=== PATIENT | male | born 1980 | race Caucasian/White ===

== ENCOUNTER → 2018-02-02 15:28 | Outpatient (CLI) | payer OTHER, SELFPAY ==
[2018-02-02 16:20] LABS: Ferritin 78 ng/mL (26-388)
[2018-02-02 17:25] LABS: Absolute Lymphocyte Count 2.07 X10^3/ul (0.83-4.51); Absolute Neutrophil Count 4.4 X10^3/uL (2.0-7.7); Basophil# 0.03 X10^3/uL; Basophil% 0.4 % (0-1); Eosinophil# 0.18 X10^3/uL; Eosinophils% 2.5 % (0-5); Hematocrit 45.9 % (40-54); Hemoglobin 16.7 g/dl (13.0-16.5); Lymphocyte # 2.07 X10^3/ul (4.0); Lymphocyte % 28.7 % (19-41); Mean Corp Hgb Conc 36.4 g/gl (32-36); Mean Corpuscular Hgb 34.1 pg (27.0-32.0); Mean Corpuscular Volume 93.7 fL (80-94); Mean Platelet Vol. 12.2 fl (6.2-12.0); Monocyte# 0.53 X10^3/uL; Monocyte% 7.3 % (0-10); POSITIVE COUNT NO; POSITIVE DIFFERENTIAL NO; POSITIVE MORPHOLOGY NO; Platelet Count 201 K/mm3 (150-450); RBC Distribution Width CV 11.9 % (11.6-14.6); RBC Distribution Width SD 40.7 fl (35.1-43.9); White Blood Count 7.2 K/mm3 (4.4-11.0)
== END ==
PROVIDERS: Family Provider Family Medicine; PCP Family Medicine; Visit Provider Internal Medicine Medical Oncology
DX: E83.119 Hemochromatosis, unspecified (principal)
CPT/HCPCS: 36415; 82728; 85025

== ENCOUNTER → 2018-05-15 14:15 | Outpatient (CLI) | payer OTHER, SELFPAY ==
--- NOTE | 2018-05-15 14:19 | ECHOCS_ITS ---
Reason For Study: Hemachromatosis Procedure This was a 2D Doppler, Color Flow transthoracic echocardiogram. The exam was of poor technical quality due to body habitus. The study was technically difficult. Contrast injection was performed. Exam performed in department. Left Ventricle Normal LV size. Left ventricular systolic function is normal. The estimated ejection fraction is 55 %. Transmitral doppler flow suggestive of impaired relaxation of left ventricle. No regional wall motion abnormalities noted. Right Ventricle Normal RV size. Normal systolic function. Atria Normal left atrium. Normal right atrium. No doppler evidence for ASD. Mitral Valve There is no mitral annular calcification. Normal mitral valve. Tricuspid Valve Normal tricuspid valve. Trivial tricuspid valve insufficiency. Unable to estimate RV systolic pressure/pulmonary artery pressure due to technically difficult study. Aortic Valve Trisinus/trileaflet aortic valve. Normal aortic valve. Pulmonic Valve The pulmonic valve is not well visualized. Trivial pulmonic valve insufficiency. Great Vessels Normal sized aortic root. Pericardium/Pleural No pericardial effusion. Medication 22 gauge I.V. with prn adaptor inserted into right arm. Diluted definity 2ml given slow IV push to enhance endocardial definition. MMode/2D Measurements & Calculations LVIDd: 4.7 cm IVSd: 1.3 cm Ao root diam: 3.5 cm LVIDs: 3.2 cm LVPWd: 1.1 cm FS: 31.2 % LAV(MOD-bp): 38.4 ml LA A4 area: 16.1 cm2 RA A4 area: 13.8 cm2 LAV(MOD-bp) Indexed: 16.7 ml/m2 LAV(MOD-sp2): 34.3 ml LAV(MOD-sp4): 42.2 ml Time Measurements MV dec time: 0.23 sec Doppler Measurements & Calculations MV E max praneeth: 68.7 cm/sec Lat Peak E' Praneeth: 11.4 cm/sec Med Peak E' Praneeth: 11.5 cm/sec MV A max praneeth: 74.7 cm/sec E/E' lat: 6.0 E/E' med: 6.0 MV E/A: 0.92 MV V2 max: 84.6 cm/sec MV P1/2t max praneeth: 84.6 cm/sec Ao V2 max: 110.1 cm/sec MV max P.9 mmHg MV P1/2t: 82.1 msec Ao max P.8 mmHg MV V2 mean: 53.5 cm/sec MV dec slope: 301.7 cm/sec2 Ao V2 mean: 73.7 cm/sec MV mean P.3 mmHg MVA(P1/2t): 2.7 cm2 Ao mean P.4 mmHg MV V2 VTI: 25.8 cm Ao V2 VTI: 18.2 cm LV V1 max: 101.0 cm/sec PA V2 max: 97.3 cm/sec LV V1 max P.1 mmHg LV V1 mean P.1 mmHg LV V1 mean: 68.5 cm/sec LV V1 VTI: 19.3 cm Interpretation Summary The study was technically difficult. Contrast injection was performed. Left ventricular systolic function is normal. The estimated ejection fraction is 55 %. Trivial tricuspid valve insufficiency. Trivial pulmonic valve insufficiency. Unable to estimate RV systolic pressure/pulmonary artery pressure due to technically difficult study. Transmitral doppler flow suggestive of impaired relaxation of left ventricle Ordering Physician: Juan Daniel Branch Referring Physician: Juan Daniel Branch Performed By: Patrick Carias RCS
[2018-05-15 15:48] LABS: Absolute Lymphocyte Count 2.44 X10^3/ul (0.83-4.51); Absolute Neutrophil Count 3.4 X10^3/uL (2.0-7.7); Basophil# 0.01 X10^3/uL; Basophil% 0.2 % (0-1); Eosinophil# 0.22 X10^3/uL; Eosinophils% 3.4 % (0-5); Hematocrit 44.7 % (40-54); Hemoglobin 15.8 g/dl (13.0-16.5); Lymphocyte # 2.44 X10^3/ul (4.0); Lymphocyte % 37.7 % (19-41); Mean Corp Hgb Conc 35.3 g/gl (32-36); Mean Corpuscular Hgb 33.1 pg (27.0-32.0); Mean Corpuscular Volume 93.7 fL (80-94); Mean Platelet Vol. 11.7 fl (6.2-12.0); Monocyte# 0.37 X10^3/uL; Monocyte% 5.7 % (0-10); Neutrophil # 3.43 X10^3/uL (2.7-7.7); Neutrophil % 52.8 % (47-70); Platelet Count 199 K/mm3 (150-450); RBC Distribution Width CV 12.2 % (11.6-14.6); RBC Distribution Width SD 40.9 fl (35.1-43.9); Red Blood Count 4.77 M/mm3 (4.6-6.2); White Blood Count 6.5 K/mm3 (4.4-11.0)
[2018-05-15 15:57] LABS: POSITIVE COUNT NO; POSITIVE DIFFERENTIAL NO; POSITIVE MORPHOLOGY NO
[2018-05-15 16:22] LABS: Ferritin 51 ng/mL (26-388); Thyroid Stim Hormone (TSH) 1.97 uIU/mL (0.358-3.74)
== END ==
PROVIDERS: Family Provider Family Medicine; PCP Family Medicine; Visit Provider Internal Medicine Medical Oncology
DX: E83.119 Hemochromatosis, unspecified (principal)
CPT/HCPCS: 36415; 82728; 84443; 85025; 93306; Q9957; A4216; C8929

== ENCOUNTER → 2018-08-14 16:21 | Outpatient (CLI) | payer OTHER, SELFPAY ==
[2018-08-14 16:59] LABS: Absolute Lymphocyte Count 2.97 X10^3/ul (0.83-4.51); Absolute Neutrophil Count 3.5 X10^3/uL (2.0-7.7); Basophil# 0.02 X10^3/uL; Basophil% 0.3 % (0-1); Eosinophil# 0.22 X10^3/uL; Eosinophils% 3.1 % (0-5); Hematocrit 44.8 % (40-54); Hemoglobin 15.9 g/dl (13.0-16.5); Lymphocyte # 2.97 X10^3/ul (4.0); Lymphocyte % 41.8 % (19-41); Mean Corp Hgb Conc 35.5 g/gl (32-36); Mean Corpuscular Hgb 33.4 pg (27.0-32.0); Mean Corpuscular Volume 94.1 fL (80-94); Mean Platelet Vol. 11.7 fl (6.2-12.0); Monocyte# 0.41 X10^3/uL; Monocyte% 5.8 % (0-10); Neutrophil # 3.49 X10^3/uL (2.7-7.7); Platelet Count 197 K/mm3 (150-450); RBC Distribution Width CV 12.2 % (11.6-14.6); RBC Distribution Width SD 41.7 fl (35.1-43.9); Red Blood Count 4.76 M/mm3 (4.6-6.2); White Blood Count 7.1 K/mm3 (4.4-11.0)
[2018-08-14 17:06] LABS: POSITIVE COUNT NO; POSITIVE DIFFERENTIAL NO; POSITIVE MORPHOLOGY NO
[2018-08-14 17:30] LABS: ALB/GLOB Ratio 1.2 RATIO (0.9-2.4); AST(SGOT) 22 U/L (15-37); Alanine Aminotransfer ALT/SGPT 55 U/L (16-61); Albumin, Serum 4.1 g/dL (3.2-5.0); Alkaline Phosphatase 50 U/L (45-117); Anion Gap 6 (5-15); BUN 19 mg/dL (7-18); BUN/Creat Ratio 22.4 RATIO (10-20); Chloride 104 mmol/L (98-107); Creatinine, Serum 0.85 mg/dL (0.70-1.30); EST Glomerular Filtration Rate 107 mL/min (>60); Est Glom Filt Rate - Afr Amer 129 mL/min (>60); Ferritin 114 ng/mL (26-388); Globulin 3.3 g/dL (2.2-4.2); Glucose 86 mg/dL (74-106); Potassium 3.9 mmol/L (3.5-5.1); Protein, Total 7.4 g/dL (6.4-8.2); Sodium Level 137 mmol/L (136-145)
== END ==
PROVIDERS: Family Provider Family Medicine; PCP Family Medicine; Referring Provider Internal Medicine Medical Oncology; Visit Provider Internal Medicine Medical Oncology
DX: E83.119 Hemochromatosis, unspecified (principal)
CPT/HCPCS: 36415; 80053; 82728; 85025

== ENCOUNTER → 2018-10-08 07:34 | Outpatient (CLI) | payer OTHER, SELFPAY ==
--- NOTE | 2018-10-08 07:49 | US_ITS ---
STUDY: ABDOMINAL ULTRASOUND REASON FOR EXAM: Male, 37 years old. Hemochromatosis TECHNIQUE: Transabdominal ultrasound was performed with real-time and static belcher scale imaging. TECHNICAL QUALITY: Adequate. COMPARISON: None. FINDINGS: Liver: The liver measures 17.8 cm. There is normal echogenicity of the liver. The bile ducts are within normal limits. There is hepatic color flow. The direction of portal flow is hepatopetal. There is no demonstrated mass lesion. Portal vein measurement: Gallbladder: Normal distended gallbladder. The gallbladder wall measures 2.6 mm. There is a negative sonographic Varela's sign. There is no pericholecystic fluid. There are no gallstones. Possible multiple gallbladder polyps. Common Bile Duct (C.B.D.): The common bile duct measures 3.4 mm. Pancreas: Normal size of the head, body and tail of the pancreas. There is normal echogenicity of the pancreas. There is no demonstrated pancreatic mass or cyst. Spleen: Normal size of the spleen. The spleen measures 10.4 cm. Accessory splenic nodule measuring 2.7 cm. Right Kidney: Normal size of the right kidney. The right kidney measures 11.2 x 6.1 x 5.4 cm. Normal renal cortex. The right cortex measures 1.7 cm. There is no demonstrated renal mass or cyst. There is no right hydronephrosis. Left Kidney: Normal size of the left kidney. The left kidney measures 12.3 x 6.0 x 5.5 cm. Normal renal cortex. The left cortex measures 2.2 cm. There is no demonstrated renal mass or cyst. There is no left hydronephrosis. Aorta: The visualized portion is normal. I.V.C.: The IVC is patent. There is no ascites. US/Abdomen Complete IMPRESSION: Several gallbladder polyps are noted. Hepatomegaly with fatty changes. Electronically Signed: Wale Basilio DO at 22:25 EST Tel [phone], Service support ,
[2018-10-08 08:03] LABS: Absolute Lymphocyte Count 2.27 X10^3/ul (0.83-4.51); Absolute Neutrophil Count 3.4 X10^3/uL (2.0-7.7); Basophil# 0.02 X10^3/uL; Basophil% 0.3 % (0-1); Eosinophil# 0.16 X10^3/uL; Eosinophils% 2.5 % (0-5); Hematocrit 46.4 % (40-54); Hemoglobin 16.7 g/dl (13.0-16.5); Lymphocyte # 2.27 X10^3/ul (4.0); Lymphocyte % 35.7 % (19-41); Mean Corpuscular Hgb 33.9 pg (27.0-32.0); Mean Corpuscular Volume 94.3 fL (80-94); Mean Platelet Vol. 11.6 fl (6.2-12.0); Monocyte# 0.49 X10^3/uL; Monocyte% 7.7 % (0-10); Neutrophil % 53.6 % (47-70); Platelet Count 194 K/mm3 (150-450); RBC Distribution Width CV 12.2 % (11.6-14.6); RBC Distribution Width SD 41.6 fl (35.1-43.9); Red Blood Count 4.92 M/mm3 (4.6-6.2); White Blood Count 6.4 K/mm3 (4.4-11.0)
[2018-10-08 08:22] LABS: POSITIVE COUNT NO; POSITIVE DIFFERENTIAL NO; POSITIVE MORPHOLOGY NO
[2018-10-08 08:32] LABS: ALB/GLOB Ratio 1.2 RATIO (0.9-2.4); AST(SGOT) 24 U/L (15-37); Alanine Aminotransfer ALT/SGPT 50 U/L (16-61); Albumin, Serum 3.9 g/dL (3.2-5.0); Alkaline Phosphatase 50 U/L (45-117); Anion Gap 8 (5-15); BUN 20 mg/dL (7-18); BUN/Creat Ratio 22.9 RATIO (10-20); Calcium,Total 8.7 mg/dL (8.5-10.1); Chloride 105 mmol/L (98-107); Creatinine, Serum 0.87 mg/dL (0.70-1.30); EST Glomerular Filtration Rate 104 mL/min (>60); Est Glom Filt Rate - Afr Amer 125 mL/min (>60); Ferritin 86 ng/mL (26-388); Globulin 3.3 g/dL (2.2-4.2); Glucose 102 mg/dL (74-106); Potassium 4.1 mmol/L (3.5-5.1); Protein, Total 7.2 g/dL (6.4-8.2); Sodium Level 141 mmol/L (136-145)
--- OUTSIDE RECORDS SUMMARY | 2018-12-01 07:15 | XMS RPT_ITS ---
:1980 Author Organization OHIP Support Name Relationship Address Phone MATTHEW TAPIA/BETH Unavailable [address] + [place] [address] + [place] [address] MATTHEW TAPIA/BETH Unavailable [address] + [place] [address] + [place] [address] MATTHEW TAPIA/BETH Unavailable [address] + [place] [address] + [place] [address] MATTHEW TAPIA/BETH Unavailable [address] + [place] [address] + [place] [address] MATTHEW TAPIA/BETH Unavailable [address] + [place] [address] + [place] [address] MATTHEW TAPIA/BETH Unavailable [address] + [place] [address] + [place] [address] MATTHEW TAPIA/BETH Unavailable [address] + [place] [address] + [place] [address] MATTHEW TAPIA/BETH Unavailable [address] + [place] [address] + [place] [address] TAPIA, MATTHEW/BETH Unavailable [address] + [place] [address] + [place] [address] TAPIA, MATTHEW/BETH Unavailable [address] + [place] [address] + [place] [address] TAPIA, MATTHEW/BETH Unavailable [address] + [place] [address] + [place] [address] TAPIA, MATTHEW/BETH Unavailable [address] + [place] [address] + [place] [address] Care Team Providers Name Role Phone Juan Daniel Branch Attending Unavailable Tapia, J. Valentín Referring Unavailable Tapia, J. Valentín Primary Care Unavailable Juan Daniel Branch Consulting Unavailable Juan Daniel Branch Attending Unavailable Tapia, J. Valentín Primary Care Unavailable Tapia, J. Valentín Referring Unavailable BassamKassi dominguez Attending Unavailable Tapia, J. Valentín Primary Care Unavailable Juan Daniel Branch Attending Unavailable Juan Daniel Branch Attending Unavailable Juan Daniel Branch Referring Unavailable Tapia, J. Valentín Primary Care Unavailable Juan Daniel Branch Attending Unavailable Tapia, J. Valentín Referring Unavailable Tapia, J. Valentín Primary Care Unavailable Juan Daniel Branch Consulting Unavailable Juan Daniel Branch Attending Unavailable Juan Daniel Branch Referring Unavailable Tapia, J. Valentín Primary Care Unavailable Juan Daniel Branch Attending Unavailable Tapia, J. Valentín Referring Unavailable Tapia, J. Valentín Primary Care Unavailable Juan Daniel Branch Consulting Unavailable Mikey Ardon Attending Unavailable Juan Daniel Branch Attending Unavailable Juan Daniel Branch Referring Unavailable Tapia, J. Valentín Primary Care Unavailable Bassam, Kassi Attending Unavailable Tapia, J. Valentín Referring Unavailable Tapia, J. Valentín Primary Care Unavailable Juan Daniel Branch Consulting Unavailable Bassam, Kassi Attending Unavailable Bassam, Kassi Referring Unavailable Cameron Tapia Primary Care Unavailable PROBLEMS PROBLEMS DATE TYPE CONDITION / CODE ATTENDING STATUS SOURCE 10/12/2018 Unknown E83.110 - Hereditary Juan Daniel Branch Active [facility] hemochromatosis / Community E83.110(ICD-10) Hospital Repository 10/12/2018 Unknown E83.119 - Juan Daniel Branch Active [facility] Hemochromatosis, Community unspecified / Hospital E83.119(ICD-10) Repository PROCEDURES PROCEDURES No Procedure Records FoundRESULTS RESULTS ONCOLOGY VISIT REPORT Observed: 10/15/2018 Status: F Source: [place] 3:45 PM [facility] HOSPITAL REPOSITORY [facility] [address] [facility] [place] [address] OFFICE VISIT Date of Service: 10/15/18 1540 MR#: [id number] Acct: [id number] Name: CHARLES TAPIA Rep #: [id number] : 1980 From: Juan Daniel Branch MD Age/Sex: 37/M Location: ONC Status: Signed Subjective - Date of Service Date of Service:: 10/15/18 - Chief Complaint F/u for Hemochromatosis - History of Present Illness Mr. 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 He had liver biopsy on 11/14/2012 which showed 4+ iron with portal, periportal and bridging fibrosis with no cirrhosis. He has had phlebotomy intermittently since then. Comes for follow up. Feels well. - Past Medical/Social History Past Medical History Past Medical History: Hereditary hemochromatosis,Hypertension Cancer: Skin cancer Past Surgical History Surgical: Splenectomy,Tonsillectomy Other Surgical History: WIDE EXCISION OF MELANOMA Family History Paternal Past Medical History: Unknown Maternal Past Medical History: Hypertension Social History Social History: No changes Smoking Status Light Smoker (<10/day) Review of Systems Constitutional:: Denies: Fever, Sweats, Weight loss, Appetite change, Chills Cardiovascular:: Denies: Chest pain, Palpitations, Dyspnea on exertion, Orthopnea, PND, Shortness of breath Respiratory: Denies: Cough, Hemoptysis, Shortness of Breath, Wheezing Gastrointestinal:: Denies: Abdominal pain, Nausea, Vomiting, Diarrhea, Constipation, Hematochezia Genitourinary: Denies: Dysuria, Hematuria, 15, Flank pain Musculoskeletal:: Denies: Back pain, Myalgia, Arthralgia Skin: Denies: Rash, Skin Changes, Wounds Neurological:: Denies: Headache, Dizziness, Visual changes, Tinnitus, Hearing loss Psychiatric: Denies: Anxiety, Depression, Homicidal Ideations, Suicidal Ideations Vital Signs Height 6 ft Weight: 112.219 kg Weight in Pounds 247.4 lbs Pulse Ox 98 - Physical Exam General: Alert, Oriented x3, No apparent distress HEENT: Atraumatic, PERRLA, EOMI, Normocephalic Oropharynx:: Dry mucosa Neck:: Supple, Trachea midline. Negative for: JVD, bilateral Cardiac:: Regular rate, Regular rhythm, Normal S1, Normal S2. Negative for: Murmur Lungs: Clear to auscultation, Excusion symmetrical. Negative for: Rhonchi, Wheezes Abdomen:: Bowel sounds x 4, Soft, Non-tender, Non-distended. Negative for: Hepatosplenomegaly Extremities:: Negative for: Cyanosis, Edema Neurological: Neuro grossly intact Skin:: Negative for: Lesions, Rash, Petechiae, Ecchymosis Psychiatric:: Appropriate affect, Euthymic Lymphatics:: Negative for: Cervical lymphadenopathy, Supraclavicular lymphadenopathy, Axillary lymphadenopathy Laboratory Data: Laboratory Tests WBC 6.4 Hgb 16.7 H Hct 46.4 Plt Count 194 Ferritin 86 Total Bilirubin AST ALT Alkaline Phosphatase Diagnostic Data: 10/08/2018 US abd reviewed. US/Abdomen Complete IMPRESSION: Several gallbladder polyps are noted. Hepatomegaly with fatty changes. Electronically Signed: Wale Basilio DO at 22:25 EST Assessment and Plan Homozygous Hemochromatosis, Ferritin is 86. Clinically stable. Normal Ejection Fraction. Plan is to proceed with Phlebotomy 500cc followed by NS 500cc today. RTC 3 months with cbc, cmp,iron, ferritin. Medications: Prescriptions This Visit Medication Instructions Recorded Lisinopril [Zestril] 40 mg PO DAILY 05/08/17 Multivitamin [Multiple Vitamins] 1 each PO DAILY 07/03/17 Primary Care Provider: Cameron Tapia MD Referring Provider: - Problem List (1) Hemochromatosis Status: Chronic Qualifiers: Hemochromatosis type: hereditary Qualified Code(s): E83.110 - Hereditary hemochromatosis Code Visit Office Visits / Consults: 47714 OV L3 Est 10/15/18 1545 <Electronically signed by Juan Daniel Branch MD> Date Juan Daniel Branch MD Cosigner Signature: Date (if applicable) CC: ABDOMEN COMPLETE Observed: 10/08/2018 Status: F Source: [place] 7:49 AM [facility] REPOSITORY [facility] Imaging Services [address] [place] [address] Abdomen Complete MR#: [id number] Acct: [id number] Name: CHARLES TAPIA Rep #: [id number] : 1980 M 37 From: Wale Basilio DO PCP: Cameron Tapia MD Status: REG CLI Study: Abdomen Complete Date of Exam: 10/08/18 Exam# [id number] Ordering Dr: Kassi Banegas STUDY: ABDOMINAL ULTRASOUND REASON FOR EXAM: Male, 37 years old. Hemochromatosis TECHNIQUE: Transabdominal ultrasound was performed with real-time and static belcher scale imaging. TECHNICAL QUALITY: Adequate. COMPARISON: None. FINDINGS: Liver: The liver measures 17.8 cm. There is normal echogenicity of the liver. The bile ducts are within normal limits. There is hepatic color flow. The direction of portal flow is hepatopetal. There is no demonstrated mass lesion. Portal vein measurement: Gallbladder: Normal distended gallbladder. The gallbladder wall measures 2.6 mm. There is a negative sonographic Varela's sign. There is no pericholecystic fluid. There are no gallstones. Possible multiple gallbladder polyps. Common Bile Duct (C.B.D.): The common bile duct measures 3.4 mm. Pancreas: Normal size of the head, body and tail of the pancreas. There is normal echogenicity of the pancreas. There is no demonstrated pancreatic mass or cyst. Spleen: Normal size of the spleen. The spleen measures 10.4 cm. Accessory splenic nodule measuring 2.7 cm. Right Kidney: Normal size of the right kidney. The right kidney measures 11.2 x 6.1 x 5.4 cm. Normal renal cortex. The right cortex measures 1.7 cm. There is no demonstrated renal mass or cyst. There is no right hydronephrosis. Left Kidney: Normal size of the left kidney. The left kidney measures 12.3 x 6.0 x 5.5 cm. Normal renal cortex. The left cortex measures 2.2 cm. There is no demonstrated renal mass or cyst. There is no left hydronephrosis. Aorta: The visualized portion is normal. I.V.C.: The IVC is patent. There is no ascites. US/Abdomen Complete IMPRESSION: Several gallbladder polyps are noted. Hepatomegaly with fatty changes. Electronically Signed: Wale Basilio DO at 22:25 EST Tel [phone], Service support , CC: Cameron Tapia MD; Kassi Banegas NP Assembling Machine Operator: Signed CBC W/DIFF, AUTOMATED Collected: 10/08/2018 Status: F Source: [facility] 7:43 AM [facility] REPOSITORY Order Comment: Reason for Laboratory Test . TYPE CODE TESTS RESULT OUT OF RANGE REFERENCE UNITS LAB L100.1000 4.4-11.0 K/mm3 Normal WBC 6.4 LAB L100.1200 4.6-6.2 M/mm3 Normal RBC 4.92 LAB L100.1300 13.0-16.5 g/dl High HGB 16.7 LAB L100.1400 40-54 % Normal HCT 46.4 LAB L100.1500 80-94 fL High MCV 94.3 LAB L100.1600 27.0-32.0 pg High MCH 33.9 LAB L100.1700 32-36 g/gl Normal MCHC 36.0 LAB L100.1810 11.6-14.6 % Normal RDW CV 12.2 LAB L100.1820 35.1-43.9 fl Normal RDW SD 41.6 LAB L100.1900 150-450 K/mm3 Normal PLT 194 LAB L100.2000 6.2-12.0 fl Normal MPV 11.6 LAB L100.2100 47-70 % Normal NEUT% 53.6 LAB L100.2200 19-41 % Normal LY% 35.7 LAB L100.2300 0-10 % Normal MONO% 7.7 LAB L100.2400 0-5 % Normal EO% 2.5 LAB L100.2500 0-1 % Normal BASO% 0.3 LAB L100.2550 0.0-0.9 % Normal IM GRAN % 0.200 Result Comment: IG% - Immature Granulocytes (promyelocytes, myelocytes and metamyelocytes) > 1% indicates that a LEFT SHIFT is Present. LAB L100.2620 2.0-7.7 X10 3/uL Normal Absolute Neut 3.4 LAB L100.2720 0.83-4.51 X10 3/ul Normal Absolute Lymph 2.27 Performed By: #### L100.0100 #### [facility] [address] [place], [place], [id number] COMPREHENSIVE METABOLIC Collected: 10/08/2018 Status: F Source: [facility] 7:43 AM [facility] REPOSITORY Order Comment: Reason for Laboratory Test . TYPE CODE TESTS RESULT OUT OF RANGE REFERENCE UNITS LAB L501.0100 74-106 mg/dL Normal GLU 102 Result Comment: Fasting Glucose result from 100 to 125 mg/dL suggests IMPAIRED HOMEOSTASIS per A.D.A. criteria. Please note revised GLUCOSE reference range effective 2017. LAB L501.1000 7-18 mg/dL High BUN 20 LAB L501.1100 0.70-1.30 mg/dL Normal CREAT,SERUM 0.87 Result Comment: The validity of the calculated GFR AND GFRAA in patients over 70 years has not been determined. Clinical correlation is essential. LAB L501.1110 >60 mL/min Normal EST GFR 104 Result Comment: Non- GFR Calc LAB L501.1115 >60 mL/min Normal EST GFR - AA 125 Result Comment: GFR Calc LAB L501.1300 10-20 RATIO High BUN/CRE 22.9 LAB L501.1500 6.4-8.2 g/dL T Normal PROT 7.2 LAB L501.1800 3.2-5.0 g/dL Normal ALB 3.9 LAB L501.1950 2.2-4.2 g/dL Normal GLOB 3.3 LAB L501.2000 0.9-2.4 RATIO Normal A/G 1.2 LAB L501.2200 8.5-10.1 mg/dL CA Normal 8.7 LAB L501.4100 15-37 U/L Normal AST 24 LAB L501.4305 45-117 U/L Normal ALK P 50 LAB L501.4405 16-61 U/L Normal ALT 50 LAB L501.4600 0.20-1.00 mg/dL T Normal BILI 0.70 LAB L501.5300 136-145 mmol/L NA Normal 141 LAB L501.5600 3.5-5.1 mmol/L K Normal 4.1 LAB L501.5900 98-107 mmol/L CL Normal 105 LAB L501.6100 21.0-32.0 mmol/L Normal CO2 28.0 LAB L501.6200 5-15 Normal GAP 8 Performed By: #### L500.4050, L503.6550 #### [facility] [address] [facility] [place], [address] FERRITIN Collected: 10/08/2018 Status: F Source: [place] 7:43 AM [facility] REPOSITORY Order Comment: Reason for Laboratory Test . TYPE CODE TESTS RESULT OUT OF RANGE REFERENCE UNITS LAB L503.6550 26-388 ng/mL Normal FERRITIN 86 Performed By: #### L500.4050, L503.6550 #### [facility] [address] [facility] [place], [address] ONCOLOGY VISIT REPORT Observed: 08/16/2018 Status: F Source: [place] 4:00 PM [facility] REPOSITORY [facility] [address] [place] [address] OFFICE VISIT Date of Service: 08/16/18 1451 MR#: [id number] Acct: [id number] Name: CHARLES TAPIA Rep #: [id number] : 1980 From: Kassi WYATT Age/Sex: 37/M Location: ONC Status: Signed Subjective - Date of Service Date of Service:: 08/16/18 - Chief Complaint F/u for Hemochromatosis - History of Present Illness Mr. 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 He had liver biopsy on 11/14/2012 which showed 4+ iron with portal, periportal and bridging fibrosis with no cirrhosis. He has had phlebotomy intermittently since then. - Interval History The patient is presenting to clinic for routine 3 month follow up and denies any concerns r/t today's visit. Specifically he denies weight loss, fatigue, abd pain, increase abd girth, any episodes of bleeding/bruising and swelling pain of his extremities. Reports he typically tolerates phlebotomy well. Does not follow low iron diet. - Past Medical/Social History Past Medical History Past Medical History: Hereditary hemochromatosis,Hypertension Cancer: Skin cancer Past Surgical History Surgical: Splenectomy,Tonsillectomy Other Surgical History: WIDE EXCISION OF MELANOMA Family History Paternal Past Medical History: Unknown Maternal Past Medical History: Hypertension Social History Social History: No changes Smoking Status Current some day smoker Review of Systems Constitutional:: Denies: Fever, Sweats, Weight loss, Appetite change, Chills Cardiovascular:: Denies: Chest pain, Palpitations, Dyspnea on exertion, Orthopnea, PND, Shortness of breath Respiratory: Denies: Cough, Hemoptysis, Shortness of Breath, Wheezing Gastrointestinal:: Denies: Abdominal pain, Nausea, Vomiting, Diarrhea, Constipation, Hematochezia Genitourinary: Denies: Dysuria, Hematuria, 15, Flank pain Musculoskeletal:: Denies: Back pain, Myalgia, Arthralgia Skin: Denies: Rash, Skin Changes, Wounds Neurological:: Denies: Headache, Dizziness, Visual changes, Tinnitus, Hearing loss Psychiatric: Denies: Anxiety, Depression, Homicidal Ideations, Suicidal Ideations Vital Signs Height 6 ft Weight: 245 lb Weight in Pounds 245.0 lbs Pulse Ox 97 - Physical Exam General: Alert, Oriented x3, No apparent distress, - - adele appearance HEENT: Atraumatic, Normocephalic Oropharynx:: Dry mucosa Neck:: Supple, Trachea midline. Negative for: JVD, bilateral Cardiac:: Regular rate, Regular rhythm, Normal S1, Normal S2. Negative for: Murmur Lungs: Clear to auscultation, Excusion symmetrical. Negative for: Rhonchi, Wheezes Abdomen:: Bowel sounds x 4, Soft, Non-tender, Non-distended. Negative for: Hepatosplenomegaly Extremities:: Negative for: Cyanosis, Edema Neurological: Neuro grossly intact Skin:: Negative for: Lesions, Rash, Petechiae, Ecchymosis Psychiatric:: Appropriate affect, Euthymic Lymphatics:: Negative for: Cervical lymphadenopathy, Supraclavicular lymphadenopathy, Axillary lymphadenopathy Assessment and Plan 1. Homozygous Hemochromatosis- Labs reviewed. LFTs WNL. Ferritin 114. Patient will undergo therapeutic phlebotomy today. Due for annual abd us in October, orders provided. RTC 10 weeks with CBC/CMP/FERRITIN and abdominal US prior, will consider for phlebotomy at that time. Kassi Banegas, MSN, AIR CONDITIONING INSTALLER-C, AOCNP Medications: Prescriptions This Visit Medication Instructions Recorded Lisinopril [Zestril] 40 mg PO DAILY 05/08/17 Multivitamin [Multiple Vitamins] 1 each PO DAILY 07/03/17 Primary Care Provider: Cameron Tapia MD Referring Provider: - Problem List (1) Hemochromatosis Status: Chronic Qualifiers: Hemochromatosis type: hereditary Qualified Code(s): E83.110 - Hereditary hemochromatosis 08/16/18 1600 <Electronically signed by Kassi LWEC> Date Kassi WYATT Cosigner Signature: Date (if applicable) CC: CBC W/DIFF, AUTOMATED Collected: 08/14/2018 Status: F Source: [place] 4:27 PM [facility] REPOSITORY Order Comment: Reason for Laboratory Test . TYPE CODE TESTS RESULT OUT OF RANGE REFERENCE UNITS LAB L100.1000 4.4-11.0 K/mm3 Normal WBC 7.1 LAB L100.1200 4.6-6.2 M/mm3 Normal RBC 4.76 LAB L100.1300 13.0-16.5 g/dl Normal HGB 15.9 LAB L100.1400 40-54 % Normal HCT 44.8 LAB L100.1500 80-94 fL High MCV 94.1 LAB L100.1600 27.0-32.0 pg High MCH 33.4 LAB L100.1700 32-36 g/gl Normal MCHC 35.5 LAB L100.1810 11.6-14.6 % Normal RDW CV 12.2 LAB L100.1820 35.1-43.9 fl Normal RDW SD 41.7 LAB L100.1900 150-450 K/mm3 Normal PLT 197 LAB L100.2000 6.2-12.0 fl Normal MPV 11.7 LAB L100.2100 47-70 % Normal NEUT% 49.0 LAB L100.2200 19-41 % High LY% 41.8 LAB L100.2300 0-10 % Normal MONO% 5.8 LAB L100.2400 0-5 % Normal EO% 3.1 LAB L100.2500 0-1 % Normal BASO% 0.3 LAB L100.2550 0.0-0.9 % Normal IM GRAN % 0.000 Result Comment: IG% - Immature Granulocytes (promyelocytes, myelocytes and metamyelocytes) > 1% indicates that a LEFT SHIFT is Present. LAB L100.2620 2.0-7.7 X10 3/uL Normal Absolute Neut 3.5 LAB L100.2720 0.83-4.51 X10 3/ul Normal Absolute Lymph 2.97 Performed By: #### L100.0100 #### [facility] [address] [place], [place], [id number] COMPREHENSIVE METABOLIC Collected: 08/14/2018 Status: F Source: [facility] 4:27 PM [facility] REPOSITORY Order Comment: Reason for Laboratory Test . TYPE CODE TESTS RESULT OUT OF RANGE REFERENCE UNITS LAB L501.0100 74-106 mg/dL Normal GLU 86 Result Comment: Please note revised GLUCOSE reference range effective 2017. LAB L501.1000 7-18 mg/dL High BUN 19 LAB L501.1100 0.70-1.30 mg/dL Normal CREAT,SERUM 0.85 Result Comment: The validity of the calculated GFR AND GFRAA in patients over 70 years has not been determined. Clinical correlation is essential. LAB L501.1110 >60 mL/min Normal EST GFR 107 Result Comment: Non- GFR Calc LAB L501.1115 >60 mL/min Normal EST GFR - AA 129 Result Comment: GFR Calc LAB L501.1300 10-20 RATIO High BUN/CRE 22.4 LAB L501.1500 6.4-8.2 g/dL T Normal PROT 7.4 LAB L501.1800 3.2-5.0 g/dL Normal ALB 4.1 LAB L501.1950 2.2-4.2 g/dL Normal GLOB 3.3 LAB L501.2000 0.9-2.4 RATIO Normal A/G 1.2 LAB L501.2200 8.5-10.1 mg/dL CA Normal 9.0 LAB L501.4100 15-37 U/L Normal AST 22 LAB L501.4305 45-117 U/L Normal ALK P 50 LAB L501.4405 16-61 U/L Normal ALT 55 LAB L501.4600 0.20-1.00 mg/dL T Normal BILI 0.60 LAB L501.5300 136-145 mmol/L NA Normal 137 LAB L501.5600 3.5-5.1 mmol/L K Normal 3.9 LAB L501.5900 98-107 mmol/L CL Normal 104 LAB L501.6100 21.0-32.0 mmol/L Normal CO2 27.0 LAB L501.6200 5-15 Normal GAP 6 Performed By: #### L500.4050, L503.6550 #### [facility] [address] [place], [place], [address] FERRITIN Collected: 08/14/2018 Status: F Source: [place] 4:27 PM [facility] REPOSITORY Order Comment: Reason for Laboratory Test . TYPE CODE TESTS RESULT OUT OF RANGE REFERENCE UNITS LAB L503.6550 26-388 ng/mL Normal FERRITIN 114 Performed By: #### L500.4050, L503.6550 #### [facility] [address] [place], [address] ONCOLOGY VISIT REPORT Observed: 05/23/2018 Status: F Source: [place] 4:01 PM [facility] REPOSITORY [facility] [address] [place] [address] OFFICE VISIT Date of Service: 05/23/18 1553 MR#: [id number] Acct: [id number] Name: CHARLES TAPIA Rep #: [id number] : 1980 From: Juan Daniel Branch MD Age/Sex: 37/M Location: ONC Status: Signed Subjective - Date of Service Date of Service:: 05/23/18 - Chief Complaint F/u for Hemochromatosis. - History of Present Illness 37y.o.man was diagnosed with Hemochromatosis, homozygous for C282Y in July 2012. He had liver biopsy on 11/14/2012 which showed 4+ iron with portal, periportal and bridging fibrosis with no cirrhosis. He has had phlebotomy intermittently since then. Comes for follow up, feels well. - Past Medical/Social History Past Medical History Past Medical History: Hereditary hemochromatosis,Hypertension Cancer: Skin cancer Past Surgical History Surgical: Splenectomy,Tonsillectomy Other Surgical History: WIDE EXCISION OF MELANOMA Family History Paternal Past Medical History: Unknown Maternal Past Medical History: Hypertension Social History Social History: No changes Smoking Status Current some day smoker Review of Systems Constitutional:: Denies: Fever, Sweats, Weight loss, Appetite change, Chills Cardiovascular:: Denies: Chest pain, Palpitations, Dyspnea on exertion, Orthopnea, PND, Shortness of breath Respiratory: Denies: Cough, Hemoptysis, Shortness of Breath, Wheezing Gastrointestinal:: Denies: Abdominal pain, Nausea, Vomiting, Diarrhea, Constipation, Hematochezia Genitourinary: Denies: Dysuria, Hematuria, 15, Flank pain Musculoskeletal:: Denies: Back pain, Myalgia, Arthralgia Skin: Denies: Rash, Skin Changes, Wounds Neurological:: Denies: Headache, Dizziness, Visual changes, Tinnitus, Hearing loss Psychiatric: Denies: Anxiety, Depression, Homicidal Ideations, Suicidal Ideations Vital Signs Height 6 ft Weight: 111.13 kg Weight in Pounds 245.0 lbs Pulse Ox 97 - Physical Exam General: Alert, Oriented x3, No apparent distress HEENT: Atraumatic, PERRLA, EOMI, Normocephalic Oropharynx:: Dry mucosa Neck:: Supple, Trachea midline. Negative for: JVD, bilateral Cardiac:: Regular rate, Regular rhythm, Normal S1, Normal S2. Negative for: Murmur Lungs: Clear to auscultation, Excusion symmetrical. Negative for: Rhonchi, Wheezes Abdomen:: Bowel sounds x 4, Soft, Non-tender, Non-distended. Negative for: Hepatosplenomegaly Extremities:: Negative for: Cyanosis, Edema Neurological: Neuro grossly intact Skin:: Negative for: Lesions, Rash, Petechiae, Ecchymosis Psychiatric:: Appropriate affect, Euthymic Lymphatics:: Negative for: Cervical lymphadenopathy, Supraclavicular lymphadenopathy, Axillary lymphadenopathy Laboratory Data: Laboratory Tests Diagnostic Data: 05/15/2018 Echocardiogram EF 55%. Assessment and Plan Homozygous Hemochromatosis, Ferritin is 51. Clinically stable. Normal Ejection Fraction. Plan is to hold Phlebotomy today. RTC 3 months with cbc, ferritin. Medications: Prescriptions This Visit Medication Instructions Recorded Lisinopril [Zestril] 40 mg PO DAILY 05/08/17 Multivitamin [Multiple Vitamins] 1 each PO DAILY 07/03/17 Primary Care Provider: Cameron Tapia MD Referring Provider: - Problem List (1) Hemochromatosis Status: Chronic Qualifiers: Hemochromatosis type: hereditary Qualified Code(s): E83.110 - Hereditary hemochromatosis Code Visit Office Visits / Consults: 62625 OV L3 Est 05/23/18 1601 <Electronically signed by Juan Daneil Branch MD> Date Juan Daniel Branch MD Cosigner Signature: Date (if applicable) CC: ECHO, COMPLETE W/ Observed: 05/15/2018 Status: F Source: [facility] 4:28 PM [facility] REPOSITORY [facility] Cardiovascular Services [address] [place] [address] Echo Complete W/ Contrast 05/15/18 1419 MR#: [id number] Acct: [id number] Name: CHARLES TAPIA Rep #: [id number] : 1980 37 From: Mikey Ardon MD Attending Dr: Juan Daniel Branch MD Status: REG CLI Ordering Dr: Juan Daniel Branch MD Date: 05/15/18 Location: CVS Sex: M C Admitted: Reason For Study: Hemachromatosis Procedure This was a 2D Doppler, Color Flow transthoracic echocardiogram. The exam was of poor technical quality due to body habitus. The study was technically difficult. Contrast injection was performed. Exam performed in department. Left Ventricle Normal LV size. Left ventricular systolic function is normal. The estimated ejection fraction is 55 %. Transmitral doppler flow suggestive of impaired relaxation of left ventricle. No regional wall motion abnormalities noted. Right Ventricle Normal RV size. Normal systolic function. Atria Normal left atrium. Normal right atrium. No doppler evidence for ASD. Mitral Valve There is no mitral annular calcification. Normal mitral valve. Tricuspid Valve Normal tricuspid valve. Trivial tricuspid valve insufficiency. Unable to estimate RV systolic pressure/pulmonary artery pressure due to technically difficult study. Aortic Valve Trisinus/trileaflet aortic valve. Normal aortic valve. Pulmonic Valve The pulmonic valve is not well visualized. Trivial pulmonic valve insufficiency. Great Vessels Normal sized aortic root. Pericardium/Pleural No pericardial effusion. Medication 22 gauge I.V. with prn adaptor inserted into right arm. Diluted definity 2ml given slow IV push to enhance endocardial definition. MMode/2D Measurements AND Calculations LVIDd: 4.7 cm IVSd: 1.3 cm Ao root diam: 3.5 cm LVIDs: 3.2 cm LVPWd: 1.1 cm FS: 31.2 % LAV(MOD-bp): 38.4 ml LA A4 area: 16.1 cm2 RA A4 area: 13.8 cm2 LAV(MOD-bp) Indexed: 16.7 ml/m2 LAV(MOD-sp2): 34.3 ml LAV(MOD-sp4): 42.2 ml Time Measurements MV dec time: 0.23 sec Doppler Measurements AND Calculations MV E max praneeth: 68.7 cm/sec Lat Peak E' Praneeth: 11.4 cm/sec Med Peak E' Praneeth: 11.5 cm/sec MV A max praneeth: 74.7 cm/sec E/E' lat: 6.0 E/E' med: 6.0 MV E/A: 0.92 MV V2 max: 84.6 cm/sec MV P1/2t max praneeth: 84.6 cm/sec Ao V2 max: 110.1 cm/sec MV max P.9 mmHg MV P1/2t: 82.1 msec Ao max P.8 mmHg MV V2 mean: 53.5 cm/sec MV dec slope: 301.7 cm/sec2 Ao V2 mean: 73.7 cm/sec MV mean P.3 mmHg MVA(P1/2t): 2.7 cm2 Ao mean P.4 mmHg MV V2 VTI: 25.8 cm Ao V2 VTI: 18.2 cm LV V1 max: 101.0 cm/sec PA V2 max: 97.3 cm/sec LV V1 max P.1 mmHg LV V1 mean P.1 mmHg LV V1 mean: 68.5 cm/sec LV V1 VTI: 19.3 cm Interpretation Summary The study was technically difficult. Contrast injection was performed. Left ventricular systolic function is normal. The estimated ejection fraction is 55 %. Trivial tricuspid valve insufficiency. Trivial pulmonic valve insufficiency. Unable to estimate RV systolic pressure/pulmonary artery pressure due to technically difficult study. Transmitral doppler flow suggestive of impaired relaxation of left ventricle Ordering Physician: Juan Daniel Branch Referring Physician: Juan Daniel Branch Performed By: Patrick Carias RCS 05/15/18 1627 Date Mikey Ardon MD CC: Cameron Tapia MD; Juan Daniel Branch MD Date Dictated: 05/15/18 1419 Date Transcribed: 05/15/181626 Assembling Machine Operator: Signed CBC W/DIFF, AUTOMATED Collected: 05/15/2018 Status: F Source: CHAR 2:55 PM [facility] REPOSITORY Order Comment: Reason for Laboratory Test . TYPE CODE TESTS RESULT OUT OF RANGE REFERENCE UNITS LAB L100.1000 4.4-11.0 K/mm3 Normal WBC 6.5 LAB L100.1200 4.6-6.2 M/mm3 Normal RBC 4.77 LAB L100.1300 13.0-16.5 g/dl Normal HGB 15.8 LAB L100.1400 40-54 % Normal HCT 44.7 LAB L100.1500 80-94 fL Normal MCV 93.7 LAB L100.1600 27.0-32.0 pg High MCH 33.1 LAB L100.1700 32-36 g/gl Normal MCHC 35.3 LAB L100.1810 11.6-14.6 % Normal RDW CV 12.2 LAB L100.1820 35.1-43.9 fl Normal RDW SD 40.9 LAB L100.1900 150-450 K/mm3 Normal PLT 199 LAB L100.2000 6.2-12.0 fl Normal MPV 11.7 LAB L100.2100 47-70 % Normal NEUT% 52.8 LAB L100.2200 19-41 % Normal LY% 37.7 LAB L100.2300 0-10 % Normal MONO% 5.7 LAB L100.2400 0-5 % Normal EO% 3.4 LAB L100.2500 0-1 % Normal BASO% 0.2 LAB L100.2550 0.0-0.9 % Normal IM GRAN % 0.200 Result Comment: IG% - Immature Granulocytes (promyelocytes, myelocytes and metamyelocytes) > 1% indicates that a LEFT SHIFT is Present. LAB L100.2620 2.0-7.7 X10 3/uL Normal Absolute Neut 3.4 LAB L100.2720 0.83-4.51 X10 3/ul Normal Absolute Lymph 2.44 Performed By: #### L100.0100, L501.9520, L503.6550 #### [facility] [address] [facility]. [place], [place], [id number] THYROID STIM HORMONE Collected: 05/15/2018 Status: F Source: [place] (TSH) 2:55 PM [facility] REPOSITORY Order Comment: Reason for Laboratory Test . TYPE CODE TESTS RESULT OUT OF RANGE REFERENCE UNITS LAB L501.9520 0.358-3.74 uIU/mL Normal TSH 1.97 Performed By: #### L100.0100, L501.9520, L503.6550 #### [facility] [address] [place], [place], [id number] FERRITIN Collected: 05/15/2018 Status: F Source: [place] 2:55 PM [facility] REPOSITORY Order Comment: Reason for Laboratory Test . TYPE CODE TESTS RESULT OUT OF RANGE REFERENCE UNITS LAB L503.6550 26-388 ng/mL Normal FERRITIN 51 Performed By: #### L100.0100, L501.9520, L503.6550 #### [facility] [address] [place], [address] ONCOLOGY VISIT REPORT Observed: 02/06/2018 Status: F Source: [place] 4:16 PM [facility] REPOSITORY [facility] [address] [place] [address] OFFICE VISIT Date of Service: 02/06/18 1537 MR#: [id number] Acct: [id number] Name: CHARLES TAPIA Rep #: [id number] : 1980 From: Juan Daniel Branch MD Age/Sex: 37/M Location: OMD Status: Signed Subjective - Date of Service Date of Service:: 02/06/18 - Chief Complaint f/u for Hemochromatosis. - History of Present Illness 37y.o.man was diagnosed with Hemochromatosis, homozygous for C282Y in July 2012. He had liver biopsy on 11/14/2012 which showed 4+ iron with portal, periportal and bridging fibrosis with no cirrhosis. He has had phlebotomy intermittently since then. Comes for follow up, feels well. - Past Medical/Social History Past Medical History Past Medical History: Hereditary hemochromatosis,Hypertension Cancer: Skin cancer Past Surgical History Surgical: Splenectomy,Tonsillectomy Other Surgical History: WIDE EXCISION OF MELANOMA Family History Paternal Past Medical History: Unknown Maternal Past Medical History: Hypertension Social History Social History: No changes Smoking Status Current some day smoker Review of Systems Constitutional:: Denies: Fever, Sweats, Weight loss, Appetite change, Chills Cardiovascular:: Denies: Chest pain, Palpitations, Dyspnea on exertion, Orthopnea, PND, Shortness of breath Respiratory: Denies: Cough, Hemoptysis, Shortness of Breath, Wheezing Gastrointestinal:: Denies: Abdominal pain, Nausea, Vomiting, Diarrhea, Constipation, Hematochezia Genitourinary: Denies: Dysuria, Hematuria, 15, Flank pain Musculoskeletal:: Denies: Back pain, Myalgia, Arthralgia Skin: Denies: Rash, Skin Changes, Wounds Neurological:: Denies: Headache, Dizziness, Visual changes, Tinnitus, Hearing loss Psychiatric: Denies: Anxiety, Depression, Homicidal Ideations, Suicidal Ideations Vital Signs Height 6 ft Weight: 110.677 kg Weight in Pounds 244.0 lbs Pulse Ox 95 - Physical Exam General: Alert, Oriented x3, No apparent distress Laboratory Data: 02/02/2018 Ferritin 78 Assessment and Plan Hemochromatosis, Ferritin is greater than 50. Liver showed increased echogenicity on 11/04/2017. Plan is to proceed with Phlebotomy 500cc with IV NS today. RTC 3 months with cbc, ferritin. Medications: Prescriptions This Visit Medication Instructions Recorded Lisinopril [Zestril] 40 mg PO DAILY 05/08/17 Multivitamin [Multiple Vitamins] 1 each PO DAILY 07/03/17 Primary Care Provider: Cameron Tapia MD Referring Provider: - Problem List (1) Hemochromatosis Status: Chronic Qualifiers: Hemochromatosis type: hereditary Qualified Code(s): E83.110 - Hereditary hemochromatosis Code Visit Office Visits / Consults: 35815 OV L3 Est 02/06/18 1616 <Electronically signed by Juan Daniel Branch MD> Date Juan Daniel Branch MD Cosigner Signature: Date (if applicable) CC: FERRITIN Collected: 02/02/2018 Status: F Source: [place] 3:31 PM [facility] REPOSITORY Order Comment: Reason for Laboratory Test OV TYPE CODE TESTS RESULT OUT OF RANGE REFERENCE UNITS LAB L503.6550 26-388 ng/mL Normal FERRITIN 78 Performed By: #### L503.6550, L100.0100 #### [facility] [address] [place], [address] CBC W/DIFF, AUTOMATED Collected: 02/02/2018 Status: F Source: [place] 3:31 PM [facility] REPOSITORY Order Comment: Reason for Laboratory Test OV TYPE CODE TESTS RESULT OUT OF RANGE REFERENCE UNITS LAB L100.1000 4.4-11.0 K/mm3 Normal WBC 7.2 LAB L100.1200 4.6-6.2 M/mm3 Normal RBC 4.90 LAB L100.1300 13.0-16.5 g/dl High HGB 16.7 LAB L100.1400 40-54 % Normal HCT 45.9 LAB L100.1500 80-94 fL Normal MCV 93.7 LAB L100.1600 27.0-32.0 pg High MCH 34.1 LAB L100.1700 32-36 g/gl High MCHC 36.4 LAB L100.1810 11.6-14.6 % Normal RDW CV 11.9 LAB L100.1820 35.1-43.9 fl Normal RDW SD 40.7 LAB L100.1900 150-450 K/mm3 Normal PLT 201 LAB L100.2000 6.2-12.0 fl High MPV 12.2 LAB L100.2100 47-70 % Normal NEUT% 61.0 LAB L100.2200 19-41 % Normal LY% 28.7 LAB L100.2300 0-10 % Normal MONO% 7.3 LAB L100.2400 0-5 % Normal EO% 2.5 LAB L100.2500 0-1 % Normal BASO% 0.4 LAB L100.2550 0.0-0.9 % Normal IM GRAN % 0.100 Result Comment: IG% - Immature Granulocytes (promyelocytes, myelocytes and metamyelocytes) > 1% indicates that a LEFT SHIFT is Present. LAB L100.2620 2.0-7.7 X10 3/uL Normal Absolute Neut 4.4 LAB L100.2720 0.83-4.51 X10 3/ul Normal Absolute Lymph 2.07 Performed By: #### L503.6550, L100.0100 #### [facility] [address] [place] [address]. [place], [address] CBC W/DIFF, AUTOMATED Collected: 11/04/2017 Status: F Source: [place] 10:13 AM [facility] REPOSITORY TYPE CODE TESTS RESULT OUT OF RANGE REFERENCE UNITS LAB L100.1000 4.4-11.0 K/mm3 Normal WBC 5.4 LAB L100.1200 4.6-6.2 M/mm3 Normal RBC 4.89 LAB L100.1300 13.0-16.5 g/dl Normal HGB 16.5 LAB L100.1400 40-54 % Normal HCT 46.5 LAB L100.1500 80-94 fL High MCV 95.1 LAB L100.1600 27.0-32.0 pg High MCH 33.7 LAB L100.1700 32-36 g/gl Normal MCHC 35.5 LAB L100.1810 11.6-14.6 % Normal RDW CV 12.3 LAB L100.1820 35.1-43.9 fl Normal RDW SD 42.2 LAB L100.1900 150-450 K/mm3 Normal PLT 164 LAB L100.2000 6.2-12.0 fl Normal MPV 11.3 LAB L100.2100 47-70 % Normal NEUT% 57.1 LAB L100.2200 19-41 % Normal LY% 30.5 LAB L100.2300 0-10 % Normal MONO% 8.8 LAB L100.2400 0-5 % Normal EO% 3.4 LAB L100.2500 0-1 % Normal BASO% 0.2 LAB L100.2550 0.0-0.9 % Normal IM GRAN % 0.000 Result Comment: IG% - Immature Granulocytes (promyelocytes, myelocytes and metamyelocytes) > 1% indicates that a LEFT SHIFT is Present. LAB L100.2620 2.0-7.7 X10 3/uL Normal Absolute Neut 3.1 LAB L100.2720 0.83-4.51 X10 3/ul Normal Absolute Lymph 1.64 Performed By: #### L100.0100 #### [facility] [address] [place], [address] COMPREHENSIVE METABOLIC Collected: 11/04/2017 Status: F Source: [facility] 10:13 AM [facility] REPOSITORY Order Comment: Reason for Laboratory Test . TYPE CODE TESTS RESULT OUT OF RANGE REFERENCE UNITS LAB L501.0100 70-110 mg/dL Normal GLU 105 LAB L501.1000 7-18 mg/dL Normal BUN 18 LAB L501.1100 0.70-1.30 mg/dL Normal 0.80 CREAT,SERUM Result Comment: The validity of the calculated GFR AND GFRAA in patients over 70 years has not been determined. Clinical correlation is essential. LAB L501.1110 >60 mL/min Normal EST GFR 115 Result Comment: Non- GFR Calc LAB L501.1115 >60 mL/min Normal EST GFR - AA 139 Result Comment: GFR Calc LAB L501.1255 ml/min Normal Estimated CRCL 138.76 LAB L501.1300 10-20 RATIO High BUN/CRE 22.5 LAB L501.1500 6.4-8. g/dL 2 T PROT Normal 7.2 LAB L501.1800 3.4-5. g/dL 0 ALB Normal 4.0 Result Comment: Please note revised Albumin AND Globulin reference range effective 2017. LAB L501.1950 2.2-4.2 g/dL Normal GLOB 3.2 LAB L501.2000 0.9-2.4 RATIO Normal A/G 1.2 LAB L501.2200 8.5-10.1 mg/dL Normal CA 8.9 LAB L501.4100 15-37 U/L Normal AST 31 LAB L501.4305 45-117 U/L Normal ALK P 50 LAB L501.4405 12-78 U/L Normal ALT 69 LAB L501.4600 0.20-1.00 mg/dL Normal T BILI 0.80 LAB L501.5300 136-145 mmol/L Normal NA 141 LAB L501.5600 3.5-5.1 mmol/L Normal K 4.8 LAB L501.5900 98-107 mmol/L Normal CL 104 LAB L501.6100 21.0-32.0 mmol/L Normal CO2 30.0 LAB L501.6200 5-15 Normal GAP 7 Performed By: #### L500.4050, L503.6550 #### [facility] [address] [place], [place], [address] FERRITIN Collected: 11/04/2017 Status: F Source: [place] 10:13 AM [facility] REPOSITORY Order Comment: Reason for Laboratory Test . TYPE CODE TESTS RESULT OUT OF RANGE REFERENCE UNITS LAB L503.6550 26-388 ng/mL Normal FERRITIN 94 Performed By: #### L500.4050, L503.6550 #### [facility] [address] [place], [place], [address] ABDOMEN COMPLETE Observed: 11/04/2017 Status: F Source: [place] 9:28 AM [facility] REPOSITORY [facility] Imaging Services [address] [place] [address] Abdomen Complete MR#: [id number] Acct: [id number] Name: CHARLES TAIPA Rep #: [id number] : 1980 M 36 From: Favian Avina PCP: Cameron Tapia MD Status: REG CLI Study: Abdomen Complete Date of Exam: 11/04/17 Exam# [id number] Ordering Dr: Kassi Banegas CURRICULUM DIRECTOR-Marti STUDY: ABDOMINAL ULTRASOUND REASON FOR EXAM: Male, 36 years old. Hemochromatosis. TECHNIQUE: Transabdominal ultrasound was performed with real-time and static belcher scale imaging. TECHNICAL QUALITY: Adequate. COMPARISON: None. FINDINGS: Liver: The liver measures 18.15 cm in sagittal length. The liver parenchyma is of increased echogenicity and coarse echotexture, compatible with given history of hemochromatosis. The bile ducts are within normal limits. There is hepatic color flow. The direction of portal flow is hepatopetal. : Gallbladder: Normal distended gallbladder. The gallbladder wall measures 3.1 mm. There is a negative sonographic Varela's sign. There is no pericholecystic fluid. There is a 5 mm gallbladder polyp present. Common Bile Duct (C.B.D.): The common bile duct measures 3.3 mm. Pancreas: Normal size of the head, body and tail of the pancreas. There is normal echogenicity of the pancreas. There is no demonstrated pancreatic mass or cyst. Spleen: Normal size of the spleen. The spleen measures 10.6 cm in length. Right Kidney: Normal size of the right kidney. The right kidney measures 11.6 x 6.4 x 5.7 cm. Normal renal cortex. The right cortex measures 1.5 cm. There is no demonstrated renal mass or cyst. There is no right hydronephrosis. Left Kidney: Normal size of the left kidney. The left kidney measures 12.1 x 5.9 x 5.9 cm. Normal renal cortex. The left cortex measures 1.7 cm. There is no demonstrated renal mass or cyst. There is no left hydronephrosis. Aorta: There is no abdominal aortic aneurysm. I.V.C.: The IVC is patent. There is no ascites. US/Abdomen Complete IMPRESSION: 1. The liver parenchyma is of increased echogenicity and coarse echotexture, compatible with history of hemachromatosis. 2. Borderline gallbladder wall thickening. A 5 mm gallbladder polyp. No biliary ductal dilatation. 3. The pancreas, spleen and kidneys are unremarkable. Electronically Signed: Celine Avina MD at 10:37 EST Tel , Service support , CC: Cameron Tapia MD; Kassi Banegas NP Assembling Machine Operator: Signed ALLERGIES ALLERGIES DATE TYPE / CODE NAME / CODE REACTION SEVERITY SOURCE 10/15/2018 Drug Penicillins/ Rash MO [facility] Allergy/4160 [id number]( Hospital 40138(SNOMED XNORM) Repository CT) ENCOUNTERS ENCOUNTERS ADMIT/DISCHARGE ACCOUNT ADMITTING ENCOUNTER LOCATION SOURCE NUMBER CLASS 10/15/2018 [id number] Ambulatory BMSBuilding:B [place] 4 MS.CF.[facility] Repository 10/15/2018 [id number] Ambulatory Char [place] 4 [facility] ing:ONC Repository 10/08/2018 [id number] Ambulatory [place] Char 8 [facility] ing:US Repository 08/16/2018 [id number] Ambulatory BMSBuilding:B [place] 2 MS.CF.[facility] Repository 08/14/2018 [id number] Ambulatory Char [place] 1 [facility] ing:LAB Repository 05/23/2018 [id number] Ambulatory BMSBuilding:B [place] 1 MS.CF.[facility] Repository 05/15/2018 [id number] Ambulatory Char [place] 7 [facility] Hospital ing:[facility] Repository 05/15/2018 [id number] Ambulatory BMSBuilding:W Char 8 [facility] Repository 02/06/2018 [id number] Ambulatory BMSBuilding:B [place] 6 MS.CF.[facility] Repository 02/02/2018 [id number] Ambulatory Char Char 2 [facility] ing:LAB Repository 11/08/2017 [id number] Ambulatory BMSBuilding:B [place] 0 [facility] Repository 11/04/2017 [id number] Ambulatory [place] Char 8 [facility] ing:US Repository PAYERS PAYERS ENCOUNTER GUARANTOR PAYER SUBSCRIBER SOURCE 10/15/2018 CHARLES W Primary CHARLES W [place] [id number] CR Insurance:AULTCAREPol MILLERDOB: [address] Number: [id number] [facility]ers [facility] [address]Mkf: [id number] Repository Date:5592-92-49Qq [address] () [address], [place] [address]BS: 10/15/2018 Secondary NOT GIVENUNK [place] Insurance:SELF PAY [facility] Number: Effective Repository Date:2018-10-15 10/15/2018 CHARLES W Primary CHARLES W Char [id number] CR Insurance:AULTCAREPol MILLERDOB: [address] Number: [id number] Corners Regional Health Center [address]Nds: [id number] Repository Date:8634-20-59Cf [address] () [address], [place] [address]VP: 10/15/2018 Secondary NOT GIVENUNK [place] Insurance:SELF PAY [facility] Number: Effective Repository Date:2017-02-06 10/08/2018 CHARLES W Primary CHARLES W [place] [id number] CR Insurance:AULTCAREPol MILLERDOB: [address] Number: [id number] Corners Regional Health Center [address]Dlk: [id number] Repository Date:9034-20-99Wp [address] () [address], [place] [address]IG: 10/08/2018 Secondary NOT GIVENUNK Char Insurance:SELF PAY [facility] Number: Effective Repository Date:2018-08-16 08/16/2018 CHARLES W Primary CHARLES W Char [id number] CR Insurance:AULTCAREPol MILLERDOB: [address] icy Number: [id number] Corners Regional Health Center [address]Lvo: [id number] Repository Date:8157-18-29He [address] () [address], [place] [address]LN: 08/16/2018 Secondary NOT GIVENUNK [place] Insurance:SELF PAY [facility] Number: Effective Repository Date:2018-08-16 08/14/2018 CHARLES W Primary CHARLES W [place] [id number] CR Insurance:AULTCAREPol MILLERDOB: [address] Number: [id number] Corners Regional Health Center [address]Nqb: [id number] Repository Date:0464-00-58Le [address] () [address], [place] [address]FX: 08/14/2018 Secondary NOT GIVENUNK Char Insurance:SELF PAY [facility] Number: Effective Repository Date:2018-08-14 05/23/2018 CHARLES W Primary CHARLES W [place] [id number] CR Insurance:AULTCAREPol MILLERDOB: [address] Number: [id number] Corners Regional Health Center [address]Esj: [id number] Repository Date:9024-81-21Db [address] () [address], [place] [address]RV: 05/23/2018 Secondary NOT GIVENUNK [place] Insurance:SELF PAY [facility] Number: Effective Repository Date:2018-05-23 05/15/2018 CHARLES W Primary CHARLES W Char [id number] CR Insurance:AULTCAREPol MILLERDOB: [address] Number: [id number] Corners Regional Health Center [address]Ach: [id number] Repository Date:0678-68-85Ik [address] () [address], [place] [address]OM: 05/15/2018 Secondary NOT GIVENUNK [place] Insurance:SELF PAY [facility] Number: Effective Repository Date:2018-02-06 05/15/2018 CHARLES W Primary CHARLES W [place] [id number] CR Insurance:AULTCAREPol MILLERDOB: [address] Number: [id number] Corners Regional Health Center [address]Vih: [id number] Repository Date:3514-15-48Zu Box () [address], [place] [address]PT: 05/15/2018 Secondary NOT GIVENUNK [place] Insurance:SELF PAY [facility] Number: Effective Repository Date:2018-05-15 02/06/2018 CHARLES W Primary CHARLES W Char [id number] CR Insurance:AULTCAREPol MILLERDOB: [address] Number: [id number] Corners Regional Health Center [address]Oen: [id number] Repository Date:7780-48-94He [address] () [address], [place] [address]KM: 02/06/2018 Secondary NOT GIVENUNK [place] Insurance:SELF PAY [facility] Number: Effective Repository Date:2018-02-06 02/02/2018 CHARLES W Primary CHARLES W [place] [id number] CR Insurance:AULTCAREPol MILLERDOB: [address] icy Number: [id number] Corners Regional Health Center [address]Ndi: [id number] Repository Date:0828-07-46Iu [address] () [address], [place] [address]ZQ: 02/02/2018 Secondary NOT GIVENUNK [place] Insurance:SELF PAY [facility] Number: Effective Repository Date:2018-02-02 11/08/2017 Charles [id number] Primary Charles MillerDOB: Char CR Insurance:AULTCAREPol [id number] [address] Number: [facility] [address]Yoo: [id number] Repository Date:7235-69-95Gj [address] () [address], [place] [address]GG: 11/08/2017 Secondary NOT GIVENUNK [place] Insurance:SELF PAY [facility] Number: Effective Repository Date:2017-11-08 11/04/2017 Charles Tapia8985 Primary Charles AlonsoB: Char CR Insurance:AULTCAREPol [id number] Number: [facility] [address]Cfg: [id number] Repository Date:1697-71-07MD [address]) [address], [place] [address]IZ: 11/04/2017 Secondary NOT GIVENUNK Char Insurance:SELF PAY [facility] Number: Effective Repository Date:2017-08-02
== END ==
PROVIDERS: Family Provider Family Medicine; PCP Family Medicine; Referring Provider Nurse Practitioner Family; Visit Provider Nurse Practitioner Family
DX: E83.110 Hereditary hemochromatosis (principal); E83.119 Hemochromatosis, unspecified
CPT/HCPCS: 36415; 76700; 80053; 82728; 85025

== ENCOUNTER → 2019-01-09 16:48 | Outpatient (CLI) | payer OTHER, SELFPAY ==
[2018-10-15 15:17] VITALS: BMI 33.5
[2019-01-09 17:05] LABS: Absolute Lymphocyte Count 2.34 X10^3/ul (0.83-4.51); Absolute Neutrophil Count 4.5 X10^3/uL (2.0-7.7); Basophil# 0.02 X10^3/uL; Basophil% 0.3 % (0-1); Eosinophil# 0.15 X10^3/uL; Hematocrit 46.9 % (40-54); Hemoglobin 16.4 g/dl (13.0-16.5); Lymphocyte # 2.34 X10^3/ul (4.0); Lymphocyte % 31.5 % (19-41); Mean Corpuscular Hgb 33.2 pg (27.0-32.0); Mean Corpuscular Volume 94.9 fL (80-94); Mean Platelet Vol. 11.4 fl (6.2-12.0); Monocyte% 5.4 % (0-10); Neutrophil % 60.7 % (47-70); Platelet Count 193 K/mm3 (150-450); RBC Distribution Width CV 12.2 % (11.6-14.6); RBC Distribution Width SD 41.9 fl (35.1-43.9); Red Blood Count 4.94 M/mm3 (4.6-6.2); White Blood Count 7.4 K/mm3 (4.4-11.0)
[2019-01-09 17:08] LABS: POSITIVE COUNT NO; POSITIVE DIFFERENTIAL NO; POSITIVE MORPHOLOGY NO
[2019-01-09 17:29] LABS: ALB/GLOB Ratio 1.3 RATIO (0.9-2.4); AST(SGOT) 29 U/L (15-37); Alanine Aminotransfer ALT/SGPT 61 U/L (16-61); Albumin, Serum 4.4 g/dL (3.2-5.0); Alkaline Phosphatase 57 U/L (45-117); Anion Gap 7 (5-15); BUN 17 mg/dL (7-18); Chloride 103 mmol/L (98-107); Creatinine, Serum 0.85 mg/dL (0.70-1.30); EST Glomerular Filtration Rate 107 mL/min (>60); Est Glom Filt Rate - Afr Amer 129 mL/min (>60); Globulin 3.3 g/dL (2.2-4.2); Glucose 86 mg/dL (74-106); Iron 182 ug/dL (65-175); Iron Binding Capacity,Total 298 ug/dL (250-450); PERCENT IRON SATURATION 61.1 % (15.0-55.0); Potassium 4.2 mmol/L (3.5-5.1); Protein, Total 7.7 g/dL (6.4-8.2); Sodium Level 138 mmol/L (136-145)
== END ==
PROVIDERS: Family Provider Family Medicine; PCP Family Medicine; Referring Provider Internal Medicine Medical Oncology; Visit Provider Internal Medicine Medical Oncology
DX: E83.119 Hemochromatosis, unspecified (principal)
CPT/HCPCS: 36415; 80053; 83540; 83550; 85025

== ENCOUNTER → 2019-04-11 16:54 | Outpatient (CLI) | payer OTHER, SELFPAY ==
[2019-01-14 16:14] VITALS: BMI 33.5
[2019-04-11 17:41] LABS: Absolute Lymphocyte Count 2.32 X10^3/ul (0.83-4.51); Absolute Neutrophil Count 3.5 X10^3/uL (2.0-7.7); Basophil# 0.02 X10^3/uL; Basophil% 0.3 % (0-1); Eosinophil# 0.19 X10^3/uL; Eosinophils% 2.9 % (0-5); Hematocrit 44.7 % (40-54); Hemoglobin 15.8 g/dl (13.0-16.5); Lymphocyte # 2.32 X10^3/ul (4.0); Lymphocyte % 35.4 % (19-41); Mean Corp Hgb Conc 35.3 g/gl (32-36); Mean Corpuscular Hgb 24.1 pg (27.0-32.0); Mean Platelet Vol. 11.5 fl (6.2-12.0); Monocyte% 7.6 % (0-10); Neutrophil # 3.51 X10^3/uL (2.7-7.7); Neutrophil % 53.6 % (47-70); POSITIVE COUNT NO; POSITIVE DIFFERENTIAL NO; POSITIVE MORPHOLOGY NO; Platelet Count 176 K/mm3 (150-450); RBC Distribution Width SD 40.5 fl (35.1-43.9); Red Blood Count 4.86 M/mm3 (4.6-6.2); White Blood Count 6.6 K/mm3 (4.4-11.0)
[2019-04-11 17:55] LABS: ALB/GLOB Ratio 1.2 RATIO (0.9-2.4); AST(SGOT) 25 U/L (15-37); Alanine Aminotransfer ALT/SGPT 50 U/L (16-61); Albumin, Serum 4.1 g/dL (3.2-5.0); Alkaline Phosphatase 53 U/L (45-117); Anion Gap 6 (5-15); BUN 20 mg/dL (7-18); BUN/Creat Ratio 22.5 RATIO (10-20); Calcium,Total 8.8 mg/dL (8.5-10.1); Chloride 105 mmol/L (98-107); Creatinine, Serum 0.89 mg/dL (0.70-1.30); EST Glomerular Filtration Rate 101 mL/min (>60); Est Glom Filt Rate - Afr Amer 122 mL/min (>60); Ferritin 75 ng/mL (26-388); Globulin 3.3 g/dL (2.2-4.2); Glucose 87 mg/dL (74-106); Iron 253 ug/dL (65-175); Iron Binding Capacity,Total 277 ug/dL (250-450); PERCENT IRON SATURATION 91.3 % (15.0-55.0); Potassium 3.7 mmol/L (3.5-5.1); Protein, Total 7.4 g/dL (6.4-8.2); Sodium Level 138 mmol/L (136-145)
== END ==
PROVIDERS: Family Provider Family Medicine; PCP Family Medicine; Referring Provider Internal Medicine Medical Oncology; Visit Provider Internal Medicine Medical Oncology
DX: E83.119 Hemochromatosis, unspecified (principal)
CPT/HCPCS: 36415; 80053; 82728; 83540; 83550; 85025

== ENCOUNTER → 2019-07-19 13:43 | Outpatient (CLI) | payer OTHER, SELFPAY ==
[2019-04-15 15:16] VITALS: BMI 33.2
[2019-07-19 14:56] LABS: Absolute Lymphocyte Count 2.08 X10^3/uL (0.83-4.51); Basophil# 0.03 X10^3/uL; Basophil% 0.4 % (0-1); Eosinophil# 0.14 X10^3/uL; Eosinophils% 2.1 % (0-5); Hemoglobin 16.9 g/dL (13.0-16.5); Lymphocyte # 2.08 X10^3/ul (4.0); Lymphocyte % 30.5 % (19-41); Mean Corpuscular Hgb 33.9 pg (27.0-32.0); Mean Corpuscular Volume 94.2 fL (80-94); Mean Platelet Vol. 11.9 fl (6.2-12.0); Monocyte# 0.52 X10^3/uL; Monocyte% 7.6 % (0-10); NRBC Flagged by Analyzer 0 % (0-5); Neutrophil # 4.02 X10^3/uL (2.7-7.7); Neutrophil % 59.1 % (47-70); Platelet Count 209 K/mm3 (150-450); RBC Distribution Width CV 11.5 % (11.6-14.6); RBC Distribution Width SD 39.8 fl (35.1-43.9); Red Blood Count 4.99 M/mm3 (4.6-6.2); White Blood Count 6.8 K/mm3 (4.4-11.0)
[2019-07-19 15:22] LABS: ALB/GLOB Ratio 1.2 RATIO (0.9-2.4); AST(SGOT) 20 U/L (15-37); Alanine Aminotransfer ALT/SGPT 44 U/L (16-61); Alkaline Phosphatase 57 U/L (45-117); Anion Gap 6 (5-15); BUN 16 mg/dL (7-18); BUN/Creat Ratio 17.4 RATIO (10-20); Calcium,Total 8.9 mg/dL (8.5-10.1); Chloride 108 mmol/L (98-107); Creatinine, Serum 0.92 mg/dL (0.70-1.30); EST Glomerular Filtration Rate 97 mL/min (>60); Est Glom Filt Rate - Afr Amer 117 mL/min (>60); Ferritin 82 ng/mL (26-388); Globulin 3.4 g/dL (2.2-4.2); Glucose 111 mg/dL (74-106); Iron 183 ug/dL (65-175); Iron Binding Capacity,Total 276 ug/dL (250-450); PERCENT IRON SATURATION 66.3 % (15.0-55.0); Potassium 3.7 mmol/L (3.5-5.1); Protein, Total 7.4 g/dL (6.4-8.2); Sodium Level 141 mmol/L (136-145)
== END ==
PROVIDERS: Family Provider Family Medicine; PCP Family Medicine; Referring Provider Internal Medicine Medical Oncology; Visit Provider Internal Medicine Medical Oncology
DX: E83.119 Hemochromatosis, unspecified (principal)
CPT/HCPCS: 36415; 80053; 82728; 83540; 83550; 85025

== ENCOUNTER → 2019-10-18 11:08 | Outpatient (CLI) | payer OTHER, SELFPAY ==
[2019-07-22 16:05] VITALS: BMI 31.1
[2019-10-18 12:42] LABS: Absolute Lymphocyte Count 2.22 X10^3/uL (0.83-4.51); Basophil# 0.02 X10^3/uL; Basophil% 0.2 % (0-1); Eosinophil# 0.14 X10^3/uL; Eosinophils% 1.6 % (0-5); Hematocrit 47.9 % (40-54); Hemoglobin 16.9 g/dL (13.0-16.5); Lymphocyte # 2.22 X10^3/ul (4.0); Lymphocyte % 24.9 % (19-41); Mean Corp Hgb Conc 35.3 g/dL (32-36); Mean Corpuscular Hgb 33.5 pg (27.0-32.0); Mean Corpuscular Volume 94.9 fL (80-94); Mean Platelet Vol. 12.1 fl (6.2-12.0); Monocyte# 0.53 X10^3/uL; Monocyte% 5.9 % (0-10); NRBC Flagged by Analyzer 0 % (0-5); Neutrophil # 5.99 X10^3/uL (2.7-7.7); Neutrophil % 67.2 % (47-70); Platelet Count 197 K/mm3 (150-450); RBC Distribution Width CV 11.9 % (11.6-14.6); RBC Distribution Width SD 41.5 fl (35.1-43.9); Red Blood Count 5.05 M/mm3 (4.6-6.2); White Blood Count 8.9 K/mm3 (4.4-11.0)
[2019-10-18 13:04] LABS: ALB/GLOB Ratio 1.3 RATIO (0.9-2.4); AST(SGOT) 20 U/L (15-37); Alanine Aminotransfer ALT/SGPT 40 U/L (16-61); Albumin, Serum 4.2 g/dL (3.2-5.0); Alkaline Phosphatase 52 U/L (45-117); Anion Gap 7 (5-15); BUN 15 mg/dL (7-18); BUN/Creat Ratio 17.5 RATIO (10-20); Calcium,Total 9.2 mg/dL (8.5-10.1); Chloride 105 mmol/L (98-107); Creatinine, Serum 0.86 mg/dL (0.70-1.30); EST Glomerular Filtration Rate 105 mL/min (>60); Est Glom Filt Rate - Afr Amer 127 mL/min (>60); Ferritin 75 ng/mL (26-388); Globulin 3.2 g/dL (2.2-4.2); Glucose 88 mg/dL (74-106); Potassium 3.9 mmol/L (3.5-5.1); Protein, Total 7.4 g/dL (6.4-8.2); Sodium Level 141 mmol/L (136-145)
== END ==
PROVIDERS: Family Provider Family Medicine; PCP Family Medicine; Referring Provider Internal Medicine Medical Oncology; Visit Provider Internal Medicine Medical Oncology
DX: E83.119 Hemochromatosis, unspecified (principal)
CPT/HCPCS: 36415; 80053; 82728; 85025

== ENCOUNTER → 2020-01-17 15:20 | Outpatient (CLI) | payer OTHER, SELFPAY ==
[2019-10-21 15:04] VITALS: BMI 31.6
[2020-01-17 16:54] LABS: Absolute Lymphocyte Count 2.13 X10^3/uL (0.83-4.51); Absolute Neutrophil Count 4.3 X10^3/uL (2.0-7.7); Basophil# 0.03 X10^3/uL; Basophil% 0.4 % (0-1); Eosinophil# 0.09 X10^3/uL; Eosinophils% 1.3 % (0-5); Hematocrit 45.2 % (40-54); Hemoglobin 16.3 g/dL (13.0-16.5); Lymphocyte # 2.13 X10^3/ul (4.0); Lymphocyte % 30.2 % (19-41); Mean Corp Hgb Conc 36.1 g/dL (32-36); Mean Corpuscular Volume 94.4 fL (80-94); Mean Platelet Vol. 11.9 fl (6.2-12.0); Monocyte# 0.49 X10^3/uL; Monocyte% 6.9 % (0-10); NRBC Flagged by Analyzer 0 % (0-5); Neutrophil # 4.31 X10^3/uL (2.7-7.7); Neutrophil % 61.1 % (47-70); Platelet Count 182 K/mm3 (150-450); RBC Distribution Width CV 11.8 % (11.6-14.6); Red Blood Count 4.79 M/mm3 (4.6-6.2); White Blood Count 7.1 K/mm3 (4.4-11.0)
[2020-01-17 17:14] LABS: ALB/GLOB Ratio 1.4 RATIO (0.9-2.4); AST(SGOT) 23 U/L (15-37); Alanine Aminotransfer ALT/SGPT 41 U/L (16-61); Albumin, Serum 4.2 g/dL (3.2-5.0); Alkaline Phosphatase 55 U/L (45-117); Anion Gap 6 (5-15); BUN 17 mg/dL (7-18); BUN/Creat Ratio 19.8 RATIO (10-20); Chloride 108 mmol/L (98-107); Creatinine, Serum 0.86 mg/dL (0.70-1.30); EST Glomerular Filtration Rate 105 mL/min (>60); Est Glom Filt Rate - Afr Amer 127 mL/min (>60); Ferritin 111 ng/mL (26-388); Globulin 3.1 g/dL (2.2-4.2); Glucose 79 mg/dL (74-106); LDH 203 U/L (87-241); Potassium 3.6 mmol/L (3.5-5.1); Protein, Total 7.3 g/dL (6.4-8.2); Sodium Level 141 mmol/L (136-145)
== END ==
PROVIDERS: PCP Family Medicine; Referring Provider Internal Medicine Medical Oncology; Visit Provider Internal Medicine Medical Oncology
DX: E83.119 Hemochromatosis, unspecified (principal)
CPT/HCPCS: 36415; 80053; 82728; 83615; 85025

== ENCOUNTER → 2020-07-16 16:33 | Outpatient (CLI) | payer OTHER, SELFPAY ==
[2020-04-27 14:36] VITALS: BMI 31.9
[2020-07-16 17:50] LABS: Absolute Neutrophil Count 2.3 X10^3/uL (2.0-7.7); Basophil# 0.02 X10^3/uL; Basophil% 0.4 % (0-1); Eosinophil# 0.24 X10^3/uL; Eosinophils% 4.5 % (0-5); Hematocrit 41.7 % (40-54); Hemoglobin 15.2 g/dL (13.0-16.5); Lymphocyte % 43.3 % (19-41); Mean Corp Hgb Conc 36.5 g/dL (32-36); Mean Corpuscular Hgb 33.9 pg (27.0-32.0); Mean Corpuscular Volume 92.9 fL (80-94); Mean Platelet Vol. 11.3 fl (6.2-12.0); Monocyte% 7.5 % (0-10); NRBC Flagged by Analyzer 0 % (0-5); Neutrophil # 2.33 X10^3/uL (2.7-7.7); Neutrophil % 43.9 % (47-70); Platelet Count 195 K/mm3 (150-450); RBC Distribution Width CV 12.7 % (11.6-14.6); RBC Distribution Width SD 43.8 fl (35.1-43.9); Red Blood Count 4.49 M/mm3 (4.6-6.2); White Blood Count 5.3 K/mm3 (4.4-11.0)
[2020-07-16 18:52] LABS: ALB/GLOB Ratio 1.2 RATIO (0.9-2.4); AST(SGOT) 27 U/L (15-37); Alanine Aminotransfer ALT/SGPT 52 U/L (16-61); Albumin, Serum 4.1 g/dL (3.2-5.0); Alkaline Phosphatase 67 U/L (45-117); Anion Gap 6 (5-15); BUN 16 mg/dL (7-18); BUN/Creat Ratio 19.6 RATIO (10-20); Calcium,Total 8.8 mg/dL (8.5-10.1); Chloride 103 mmol/L (98-107); Creatinine, Serum 0.82 mg/dL (0.70-1.30); EST Glomerular Filtration Rate 111 mL/min (>60); Est Glom Filt Rate - Afr Amer 134 mL/min (>60); Ferritin 117 ng/mL (26-388); Globulin 3.4 g/dL (2.2-4.2); Glucose 82 mg/dL (74-106); LDH 233 U/L (87-241); Protein, Total 7.5 g/dL (6.4-8.2); Sodium Level 139 mmol/L (136-145)
== END ==
PROVIDERS: PCP Family Medicine; Referring Provider Internal Medicine Medical Oncology; Visit Provider Internal Medicine Medical Oncology
DX: E83.119 Hemochromatosis, unspecified (principal)
CPT/HCPCS: 36415; 80053; 82728; 83615; 85025

== ENCOUNTER → 2021-10-08 14:22 | Outpatient (CLI) | payer OTHER, SELFPAY ==
[2021-10-08 15:33] LABS: Absolute Lymphocyte Count 2.11 X10^3/uL (0.83-4.51); Absolute Neutrophil Count 5.2 X10^3/uL (2.0-7.7); Basophil# 0.04 X10^3/uL; Basophil% 0.5 % (0-1); Eosinophil# 0.23 X10^3/uL; Eosinophils% 2.8 % (0-5); Hematocrit 47.3 % (40-54); Hemoglobin 16.2 g/dL (13.0-16.5); Lymphocyte # 2.11 X10^3/ul (0.83-4.51); Lymphocyte % 25.7 % (19-41); Mean Corp Hgb Conc 34.2 g/dL (32-36); Mean Corpuscular Hgb 33.1 pg (27.0-32.0); Mean Corpuscular Volume 96.7 fL (80-94); Mean Platelet Vol. 12.3 fl (6.2-12.0); Monocyte# 0.57 X10^3/uL; Monocyte% 6.9 % (0-10); NRBC Flagged by Analyzer 0 % (0-5); Neutrophil # 5.24 X10^3/uL (2.7-7.7); Neutrophil % 63.7 % (47-70); Platelet Count 178 K/mm3 (150-450); RBC Distribution Width CV 11.9 % (11.6-14.6); RBC Distribution Width SD 42.5 fl (35.1-43.9); Red Blood Count 4.89 M/mm3 (4.6-6.2); White Blood Count 8.2 K/mm3 (4.4-11.0)
[2021-10-08 16:20] LABS: ALB/GLOB Ratio 1.1 RATIO (0.9-2.4); AST(SGOT) 22 U/L (15-37); Alanine Aminotransfer ALT/SGPT 55 U/L (16-61); Alkaline Phosphatase 59 U/L (45-117); Anion Gap 6 (5-15); BUN 19 mg/dL (7-18); BUN/Creat Ratio 24.8 RATIO (10-20); Calcium,Total 9.3 mg/dL (8.5-10.1); Chloride 107 mmol/L (98-107); Creatinine, Serum 0.77 mg/dL (0.70-1.30); EST Glomerular Filtration Rate 118 mL/min (>60); Est Glom Filt Rate - Afr Amer 143 mL/min (>60); Ferritin 110 ng/mL (26-388); Globulin 3.8 g/dL (2.2-4.2); Glucose 97 mg/dL (74-106); Protein, Total 7.8 g/dL (6.4-8.2); Sodium Level 141 mmol/L (136-145)
== END ==
PROVIDERS: PCP Family Medicine; Visit Provider Nurse Practitioner Family
DX: E83.110 Hereditary hemochromatosis (principal)
CPT/HCPCS: 36415; 80053; 82728; 85025

== ENCOUNTER → 2022-04-22 | Outpatient (CLI) | payer OTHER, SELFPAY ==
--- NOTE | 2022-04-22 15:47 | CT_ITS ---
EXAM: CT ABDOMEN WITH INTRAVENOUS CONTRAST CLINICAL INDICATION: elevated ALT;abnormal US liver;h/o hemachromatosis TECHNIQUE: Helically acquired images were obtained of the abdomen with intravenous contrast. This CT exam was performed using one or more of the following dose reduction techniques: automated exposure control, adjustment of the mA and/or kV according to patient size, and/or use of iterative reconstruction technique. This report was created using [employer] report generation technology. CONTRAST: IV 75mL Isovue-370 RADIATION DOSE: CTDIvol = 14.07 mGy, DLP = 838.49 mGy-cm COMPARISON: Ultrasound Oct 08 2018 8:19am FINDINGS: LOWER THORAX: Unremarkable. Lung bases are clear. No cardiomegaly. No significant pericardial effusion. LIVER: There is diffuse fatty infiltration of the liver. GALLBLADDER AND BILE DUCTS: Unremarkable. No calcified gallstones. No gallbladder distention or wall edema. No intra- or extrahepatic biliary ductal dilation. PANCREAS: Unremarkable. No focal cystic or solid mass. SPLEEN: Unremarkable. Normal size without focal cystic or solid mass. ADRENALS: Unremarkable. No nodules. KIDNEYS AND URETERS: Unremarkable. Normal renal size and position. No hydronephrosis. STOMACH AND BOWEL: There is an umbilical hernia containing fat. There is no bowel involvement. There is no incarceration. There is no findings suggesting that this is causing a bowel obstruction. No focal inflammatory change. APPENDIX: The appendix is visualized and is normal. INTRAPERITONEAL SPACE: Unremarkable. No ascites or other fluid collection. No free air. BONES/JOINTS: Degenerative findings in the lumbar spine. No suspicious lytic or blastic abnormality. SOFT TISSUES: See above. VASCULATURE: Unremarkable. Abdominal aorta is non-dilated. LYMPH NODES: No enlarged lymph nodes. OTHER FINDINGS: 4.5 mm right subpleural nodule. 4.5 mm left subpleural nodule. CT chest can better evaluate. CT/Abdomen WITH IV Contrast IMPRESSION: 1. 4.5 mm right subpleural nodule. 4.5 mm left subpleural nodule. CT chest can better evaluate. 2. There is diffuse fatty infiltration of the liver. Electronically Signed: Felipe Alvarez MD at 16:31 EDT ,
== END | disposition home or self-care (01) ==
LOC: CT 15:45
PROVIDERS: PCP Family Medicine; Referring Provider Nurse Practitioner Family; Visit Provider Nurse Practitioner Family
DX: K76.0 Fatty (change of) liver, not elsewhere classified (principal); E83.110 Hereditary hemochromatosis; R91.8 Other nonspecific abnormal finding of lung field; R93.2 Abnormal findings on diagnostic imaging of liver and biliary tract; R74.01 Elevation of levels of liver transaminase levels
CPT/HCPCS: 74160; Q9967

== ENCOUNTER → 2022-05-13 | Outpatient (CLI) | payer OTHER, SELFPAY ==
--- NOTE | 2022-05-13 16:52 | CT_ITS ---
ACR Level 3 findings have been noted. An addendum which confirms receipt of the report will follow. Age: 41 years Exam: CT Chest W/ Contrast Injection Comparison: CT abdomen and pelvis report from April 22, 2022 mentions fatty liver, 4.5 mm bilateral subpleural nodules in the lung bases. History: pulmonary nodules Radiation: CTDIvol = [15.25] mGy, DLP = [597.48] mGy-cm Contrast: ISOVUE 300-100ml FINDINGS: There are bilateral lower lung field subpleural nodules, both posterior-lateral, at approximately the same transverse level, the left is 6 mm x 6 mm, the right is 4 mm x 4 mm. There is also a more superior right posterior subpleural nodule at the level of the posterior segment superior segment of the right lower lobe which was not included on the previous abdomen and pelvis CT, this measures 7 mm x 6 mm. A third right anterolateral basilar subpleural nodule of 5 mm x 4.5 mm. No nodules definitely within the parenchyma. No mediastinal or hilar adenopathy. Complex appearance of the spleen with lobulated contour and a linear small band of calcification at its inferior aspect, the spleen measures 11.9 cm. Calcifications of splenic artery, not fully included. Low-attenuation fatty-appearing liver. There are 2 presumed hemangiomas in the left lobe of the liver, retrospectively seen on the prior exam, focal densely enhancing nodules, no obvious peripheral enhancement, these measure approximately 1.6 cm x 1.6 cm and 1.9 cm x 1.8 cm respectively. Not seen on old ultrasounds. No significant infiltrates. No aortic aneurysm or dissection. No evidence of PE. No suspicious bone lesions.. IMPRESSION. At least 4 subcentimeter subpleural nodules, 3 on the right and one on the left. No intraparenchymal nodules or adenopathy. Fleischner Society guidelines: If the patient has no known malignant disease is not immunocompromised no follow-up is necessary. Fatty liver. 2 nodular foci of of intense enhancement in the left lobe of the liver are suspected to be small hemangiomas. Not a usual appearance of primary or metastatic disease but please correlate with appropriate history. Consider MRI of the liver to confirm hemangiomas and exclude multifocal hypervascular neoplasm if it is thought to be indicated. Of course a prior CT exam would be useful for comparison. Electronically Signed: Linda Lee MD at 8:15 EDT , CT/Chest WITH Contrast IMPRESSION: undefined
[2022-05-16 03:45] LABS: CREATININE FINGERSTICK < 0.9 mg/dL (0.70-1.30); EGFR FINGERSTICK > 60.0000 mL/min (>60)
== END | disposition home or self-care (01) ==
PROVIDERS: PCP Family Medicine; Referring Provider Nurse Practitioner Family; Visit Provider Nurse Practitioner Family
DX: R91.8 Other nonspecific abnormal finding of lung field (principal)
CPT/HCPCS: 71260; Q9967

== ENCOUNTER → 2022-07-15 | Outpatient (CLI) | payer OTHER, SELFPAY ==
[2022-07-15 17:40] LABS: Absolute Lymphocyte Count 1.53 X10^3/uL (0.83-4.51); Absolute Neutrophil Count 4.9 X10^3/uL (2.0-7.7); Basophil# 0.02 X10^3/uL; Basophil% 0.3 % (0-1); Eosinophil# 0.22 X10^3/uL; Hematocrit 45.8 % (40-54); Hemoglobin 16.4 g/dL (13.0-16.5); Lymphocyte # 1.53 X10^3/ul (0.83-4.51); Lymphocyte % 20.7 % (19-41); Mean Corp Hgb Conc 35.8 g/dL (32-36); Mean Corpuscular Hgb 33.3 pg (27.0-32.0); Mean Corpuscular Volume 92.9 fL (80-94); Mean Platelet Vol. 11.6 fl (6.2-12.0); Monocyte# 0.69 X10^3/uL; Monocyte% 9.3 % (0-10); NRBC Flagged by Analyzer 0 % (0-5); Neutrophil % 66.4 % (47-70); Platelet Count 183 K/mm3 (150-450); RBC Distribution Width CV 11.7 % (11.6-14.6); RBC Distribution Width SD 40.4 fl (35.1-43.9); Red Blood Count 4.93 M/mm3 (4.6-6.2); White Blood Count 7.4 K/mm3 (4.4-11.0)
[2022-07-15 17:54] LABS: ALB/GLOB Ratio 1.1 RATIO (0.9-2.4); AST(SGOT) 30 U/L (15-37); Alanine Aminotransfer ALT/SGPT 68 U/L (16-61); Albumin, Serum 4.1 g/dL (3.2-5.0); Alkaline Phosphatase 59 U/L (45-117); Anion Gap 6 (5-15); BUN 18 mg/dL (7-18); BUN/Creat Ratio 20.6 RATIO (10-20); Calcium,Total 8.9 mg/dL (8.5-10.1); Chloride 104 mmol/L (98-107); Creatinine, Serum 0.87 mg/dL (0.70-1.30); EST Glomerular Filtration Rate 102 mL/min (>60); Est Glom Filt Rate - Afr Amer 123 mL/min (>60); Ferritin 104 ng/mL (26-388); Globulin 3.6 g/dL (2.2-4.2); Glucose 92 mg/dL (74-106); Potassium 3.8 mmol/L (3.5-5.1); Protein, Total 7.7 g/dL (6.4-8.2); Sodium Level 138 mmol/L (136-145)
== END | disposition home or self-care (01) ==
LOC: LAB 16:45
PROVIDERS: PCP Family Medicine; Referring Provider Nurse Practitioner Family; Visit Provider Nurse Practitioner Family
DX: E83.110 Hereditary hemochromatosis (principal)
CPT/HCPCS: 36415; 80053; 82728; 85025

== ENCOUNTER → 2023-07-12 | Outpatient (CLI) | payer OTHER, SELFPAY ==
--- NOTE | 2023-07-12 07:57 | US_ITS ---
INDICATION: screening for hepatocellular carcinoma; hemochromatosis. EXAMINATION: Ultrasound US Abdomen Complete TECHNIQUE: Salgado-scale and color Doppler imaging was performed of the abdomen. COMPARISON: Prior studies dated: October 08, [address] dated April 22, 2022 FINDINGS: LIVER: The liver is diffusely echogenic consistent with fatty infiltration. There is hepatomegaly. Within the left hepatic lobe there is a 2.3 x 1.9 x 1.4 cm hypoechoic focus that likely corresponds to the enhancing focus visualized on the prior chest CT dated April 22, 2022. In addition, within the left hepatic lobe there is a 2.4 x 1.9 x 1.9 cm similar appearing hypoechoic focus. Within the right hepatic lobe there are 1.2 x 2.1 x 1.0 cm and 2.0 x 0.7 x 1.9 cm hypoechoic foci. No intrahepatic biliary ductal dilatation. There is no free fluid. GALLBLADDER AND BILIARY TREE: There are nonmobile hypoechoic round foci again visualized within the gallbladder fundus not significantly changed since the prior examination measuring up to 6.6 mm. There is a comet tail artifact within the gallbladder fundus. No shadowing gallstone, pericholecystic fluid or gallbladder wall thickening is demonstrated. The proximal common bile duct measures 2.5 mm, which is within normal limits for the patient''s age. SONOGRAPHIC HERNANDEZ''S SIGN: Negative. PANCREAS: No focal abnormality is demonstrated in the pancreas. No pancreatic ductal dilatation. SPLEEN: The spleen is normal in size and homogeneous in echotexture. KIDNEYS: There is no hydronephrosis. No shadowing calculus, focal lesion, or perinephric collection is demonstrated. VESSELS: Submitted longitudinal images of the intra-abdominal aorta demonstrate no gross abnormalities and are unremarkable. The IVC is patent. US/Abdomen Complete IMPRESSION: Fatty infiltration of the liver. Hypoechoic hepatic foci may be secondary to focal fatty sparing and/or atypical hemangiomas, recommend MRI with contrast for further characterization. Gallbladder polyps. Common tail artifact within the gallbladder fundus suggestive of adenomyomatosis. Electronically Signed: Gloria Presley MD at 9:42 EDT ,
== END | disposition home or self-care (01) ==
PROVIDERS: Referring Provider Nurse Practitioner Family; Visit Provider Nurse Practitioner Family
DX: E83.119 Hemochromatosis, unspecified (principal)
CPT/HCPCS: 76700

== ENCOUNTER → 2023-08-04 | Outpatient (CLI) | payer OTHER, SELFPAY ==
--- NOTE | 2023-08-04 07:28 | US_ITS ---
STUDY: ABDOMINAL ULTRASOUND - ELASTOGRAPHY REASON FOR VISIT: Male, 42 years old. Fatty infiltration of the liver. TECHNIQUE: Liver stiffness measurements were obtained on a Dizmo RS 85 ultrasound machine using a CA 1-7 probe following the U guidelines. 3 measurements were obtained using a 2-D-SWE method. TheIQR/M was 22% suggesting a quality data set. TECHNICAL QUALITY: Adequate. COMPARISON: None. FINDINGS: Liver: There is no demonstrated mass lesion. Median liver stiffness measured 6.1 kPa. Abdomen: There is no demonstrated mass lesion. US/Elastography Parenchyma/Organ IMPRESSION: Liver stiffness measures 6.1 kPa compatible with F2-F3 (Mild to moderate liver fibrosis) Metavir score. Electronically Signed: Shan Kaminski MD at 14:24 EDT ,
== END | disposition home or self-care (01) ==
PROVIDERS: Referring Provider Internal Medicine Medical Oncology; Visit Provider Internal Medicine Medical Oncology
DX: E83.119 Hemochromatosis, unspecified (principal); K76.0 Fatty (change of) liver, not elsewhere classified
CPT/HCPCS: 76981

== ENCOUNTER → 2025-02-12 | Outpatient (CLI) | payer OTHER, SELFPAY ==
--- NOTE | 2025-02-12 08:25 | US_ITS ---
PROCEDURE: ABD LIMITED W/ ELASTOGRAPHY (USABDLELPARO), 02/12/2025 REASON FOR EXAM: HCC SCREENING; HEMACHROMATOSIS COMPARISON: None TECHNIQUE: Grayscale and color Doppler imaging of the right upper quadrant was performed. 46elks S-shear wave elastography was performed for non-invasive assessment of liver tissue stiffness. FINDINGS: Liver: Echogenic, typically indicating hepatic steatosis. Multiple hypoechoic areas may reflect focal fatty sparing however this is not definite, largest 1.8 x 2.2 x 1.5 cm on the LEFT and 1.9 x 2.2 x 0.9 cm on the RIGHT. 19.1 cm in length. Gallbladder: Multiple (at least 5) echogenic nonshadowing probable polyps, largest 5 x 7 x 6 mm, some with thickened stalks. No definite shadowing stones, wall thickening or pericholecystic fluid. Reportedly, sonographic Varela's was negative. Biliary tree: Unremarkable. CBD measures 3 mm. Pancreas: Partially obscured by shadowing bowel gas, grossly unremarkable as visualized. Right kidney: Unremarkable. 11.6 cm in length. Other: No visualized free fluid. Hepatic elastography: Number of measurements: 15 measurements across 3 regions, 5 measurements per region. US probe: CA1-7A. EQI median: 10.0 kPa EQI median velocity: 1.8 m/s IQR/Med: 13.2-16.7% (kPa) and 6.8-8.6% (m/s). If the IQR/Med is IQR/median >30% (for kPa) or >15% in m/s, the variance in the measurements is a large and the accuracy of the measurement may be in question. US/ABD Limited w/ Elastography IMPRESSION: 1. Appearance of the hepatic parenchyma typically associated with hepatic steat osis although fibrosis/cirrhosis may appear similarly. 2. Liver stiffness is 10.0 kPa. Per the below 2020 SRU criteria, this is sugges tive of compensated advanced chronic liver disease but require further testing for confirmation. 3. Indeterminate hepatic lesions up to 2.2 cm may potentially reflect focal fat ty sparing however this is not definite. Recommend multiphase hepatic protocol MRI with and without contrast, versus CT if there is a contraindication. 4. Multiple gallbladder polyps up to 7 mm. Recommend attention on follow-up RI GHT upper quadrant ultrasound in 12 months per 2021 SRU recommendations. 5. Additional description as above. Assessment is per the Update to the SRU Liver Elastography Consensus Statement (2020) Note that the above assessment of liver fibrosis is vendor-neutral and intended for use in fibrosis related to viral etiologies and non-alcoholic fatty-liver disease (NAFLD); in causes other than viral hepat itis and NAFLD, the cutoff values are currently not well established. In some patients with NAFLD, the cutoff values for cACLD may be lower (7-9 kPa). Note also that in the setting of elevated LFTs, nonfasting or vascular congestion, the stage of lifer fibrosis may be overestimated. Previous U reference values: <1.37 m/s (5.7kPa): No to mild fibrosis 1.37 m/s - 2.2 m/s: Moderate to severe fibrosis >2.2 m/s (15kPa): Significant fibrosis / cirrhosis Reading Location: [id number]
== END | disposition home or self-care (01) ==
PROVIDERS: PCP Nurse Practitioner Family; Referring Provider Nurse Practitioner Family; Visit Provider Nurse Practitioner Family
DX: E83.110 Hereditary hemochromatosis (principal)
CPT/HCPCS: 76705; 76981

== ENCOUNTER → 2025-06-03 | Outpatient (CLI) | payer OTHER, SELFPAY ==
--- NOTE | 2025-06-03 16:31 | CT_ITS ---
PROCEDURE: CT ABD/PELVIS W/WO CONTRAST 06/03/2025 REASON FOR EXAM: Abnormal LFTs TECHNIQUE: CT ABD/PELVIS W/WO CONTRAST Coronal and Sagittal reconstruction series were provided. CONTRAST: Isovue 370 VOLUME: 100 mL One or more dose reduction techniques were used (e.g., Automated exposure control, adjustment of the mA and/or kV according to patient size, use of iterative reconstruction technique. RADIATION DOSE SUMMARY: CTDlvol: 108.44 mGy DLP: 2803.20 mGycm COMPARISON: 2021 FINDINGS: Lung bases: Clear Liver: Liver shows a [place] tail left lobe extending over the anterior aspect of the spleen. There is diffuse fatty infiltration of the liver with a 2.5 cm hyperenhancing lesion within the left lobe consistent with hemangioma. This hemangioma becomes less and less conspicuous on the delayed images. On the final delayed image it is isodense to the rest of the liver. No suspicious solid mass lesion is noted. Gallbladder: Unremarkable Spleen: Normal size. There is a 2 cm accessory spleen noted. Pancreas: Normal size without evidence of mass surrounding inflammation or ductal dilation. Adrenals: Unremarkable Kidneys: Normal renal sizes. No hydronephrosis. Bowel: Visualized bowel loops are unremarkable, no evidence of ileus or obstruction, there is some retained stool in the colon. Normal appendix seen on coronal recon images 63 through 67. Lymph nodes: No suspicious mesenteric or retroperitoneal lymph nodes Vasculature: Unremarkable Peritoneum / Retroperitoneum: No free fluid or air Bones: Mild degenerative bony changes in the lumbar spine CT/CT Abd/Pelvis W/WO Contrast IMPRESSION: Diffuse fatty infiltration of the liver with a hyperenhancing 2.5 cm hemangioma in the left lobe. No specific follow-up is needed Remaining solid organs are unremarkable No free intraperitoneal fluid, air, or suspicious adenopathy, normal appendix v isualized Reading Location: [id number]
== END | disposition home or self-care (01) ==
LOC: CT 16:30
PROVIDERS: PCP Nurse Practitioner Family; Referring Provider Internal Medicine; Visit Provider Internal Medicine
DX: E83.110 Hereditary hemochromatosis (principal); K76.0 Fatty (change of) liver, not elsewhere classified; R03.0 Elevated blood-pressure reading, without diagnosis of hypertension
CPT/HCPCS: 74178; Q9967

== ENCOUNTER 2025-06-13 10:32 | Outpatient (CLI) | payer OTHER, SELFPAY ==
--- NOTE | 2025-06-13 10:56 | US_ITS ---
PROCEDURE: LIVER BIOPSY ULTRASOUND 06/13/2025 REASON FOR EXAM: LIVER FIBROSIS PROCEDURE: LIVER BIOPSY ULTRASOUND Under sonographic guidance, a right hepatic (random) liver biopsy was performed following informed consent, using standard sterile technique. 2% lidocaine local anesthesia was followed by placement of an 18 gauge 15 cm CorVocet core biopsy set. 4 samples were then obtained, and sent to pathology. Estimated blood loss was minimal. There were no immediate complications. US/Liver Biopsy Ultrasound IMPRESSION: Successful ULTRASOUND GUIDED RANDOM LIVER BIOPSY. Pathology results pending. Reading Location: [place] [id number]
[2025-06-13 11:01] LABS: Hematocrit 47.0 % (40-54); Hemoglobin 17.0 g/dL (13.0-16.5); Immature Granulocytes Count 0.010 X10^3/uL (0.0-0.0); Mean Corp Hgb Conc 36.2 g/dL (32-36); Mean Corpuscular Volume 92.2 fL (80-94); Mean Platelet Vol. 12.0 fl (6.2-12.0); NRBC Flagged by Analyzer 0 % (0-5); Platelet Count 191 K/mm3 (150-450); RBC Distribution Width CV 11.6 % (11.6-14.6); RBC Distribution Width SD 39.3 fl (35.1-43.9); Red Blood Count 5.10 M/mm3 (4.6-6.2); White Blood Count 6.3 K/mm3 (4.4-11.0)
[2025-06-13 11:10] VITALS: BP 154/98; PULSE 94; RESP 16; TEMP 36.6; O2SAT 96; BMI 35.2
[2025-06-13 11:14] LABS: Partial Thromboplast Time 26.0 Seconds (24.1-36.2); Prothrombin Time (Protime)PT. 12.9 SECONDS (11.7-14.9)
[2025-06-13] MEDS: Lidocaine 2% (20 ml mdv) 20 ML Vial INFILT (11:35)
[2025-06-13 12:00] VITALS: BP 141/89; PULSE 90; RESP 16; O2SAT 95
[2025-06-13 12:15] VITALS: BP 146/92; PULSE 91; RESP 16; O2SAT 96
[2025-06-13 12:30] VITALS: BP 150/95; PULSE 92; RESP 16; O2SAT 96
[2025-06-13 12:44] LABS: AST(SGOT) 29 U/L (<=37); Alanine Aminotransfer ALT/SGPT 50 U/L (<=46); Albumin, Serum 4.5 g/dL (3.5-5.0); Alkaline Phosphatase 72 U/L (40-129); Anion Gap 15 (5-15); BUN 15 mg/dL (4-19); BUN/Creat Ratio 22.7 RATIO (10-20); Calcium,Total 9.5 mg/dL (7.6-11.0); Carbon Dioxide 22.6 mmol/L (21.0-32.0); Chloride 101 mmol/L (98-108); Cholesterol 182 mg/dL (<=200); Estimated Creatinine Clearance 187.39 ml/min (50-250); Ferritin 121 ng/mL (37-417); Globulin 2.7 g/dL (2.2-4.2); Glucose 110 mg/dL (70-99); HIV Nonreactive (Nonreactive); Low Density Lipoprotein Calc. 80 mg/dL; Potassium 3.8 mmol/L (3.3-5.1); Triglycerides 274 mg/dL; Very Low Density Lipoprotein 55 mg/dL (5-40); cholesterol:hdl ratio screen 3.83
[2025-06-13 12:45] VITALS: BP 167/116; PULSE 99; RESP 16; O2SAT 97
[2025-06-13 12:50] VITALS: BP 164/101; PULSE 100; RESP 16; O2SAT 97
[2025-06-13 13:30] LABS: Pathology Sent to OSU SEE PATHOLOGY REPORT
[2025-06-13 17:10] LABS: Iron Binding Capacity,Total 288 ug/dL (250-450)
[2025-06-13 17:13] LABS: CRP < 3.00 mg/L (0.0-3.0); Iron 255 ug/dL (65-175); Iron Binding Capacity,Unsat 33 ug/dL (228-428)
[2025-06-16 13:08] LABS: ANTINUCLEAR ANTIBODIES DIRECT Negative (Negative)
[2025-06-18 15:08] LABS: Anti-Smooth Muscle ABS 5 Units (0-19); Copper, Serum or Plasma 80 ug/dL (69-132); GGTP 59 IU/L (0-65); HEPATITIS B SURFACE AG Negative (Negative); Hep C Antibodies Non Reactive (Non Reactive); Immunoglobulin A 191 mg/dL (90-386); Immunoglobulin G 1406 mg/dL (603-1613); Immunoglobulin M 52 mg/dL (20-172)
== END 2025-06-13 23:59 | disposition home or self-care (01) ==
PROVIDERS: PCP Nurse Practitioner Family; Referring Provider Internal Medicine; Visit Provider Internal Medicine
DX: K75.81 Nonalcoholic steatohepatitis (NASH) (principal); K74.02 Hepatic fibrosis, advanced fibrosis; R03.0 Elevated blood-pressure reading, without diagnosis of hypertension
CPT/HCPCS: 47000; 36415; 76942; 80053; 80061; 80074; 82390; 82525; 82728; 82784; 82785; 82977; 83010; 83036; 83516; 83540; 83550; 84443; 85025; 85610; 85730; 86038; 86140; 86225; 86235; 86703; 86706